=== PATIENT | male | born 1990 ===

== ENCOUNTER 2016-09-21 15:25 | Emergency (ER) | payer OTHER ==
[2016-09-21 16:03] VITALS: BMI 29.9
[2016-09-21] MEDS ORDERED: TDAP Vaccine 0.5 mL Syr IM ONE (16:12)
--- NOTE | 2016-09-21 17:30 | CT ---
PROCEDURE: CT HEAD WITHOUT CONTRAST. HISTORY: headache COMPARISON: Noncontrast head CT performed 02/08/15 TECHNIQUE: Axial computed tomography images were obtained through the head/brain without intravenous contrast. Radiation dose: Total exam DLP = 725.84 mGy-cm. This CT exam was performed using one or more of the following dose reduction techniques: Automated exposure control, adjustment of the mA and/or kV according to patient size, and/or use of iterative reconstruction technique. FINDINGS: HEMORRHAGE: No intracranial hemorrhage. BRAIN: No mass effect or edema. No atrophy or chronic microvascular ischemic changes. VENTRICLES: No hydrocephalus. CALVARIUM: Unremarkable. PARANASAL SINUSES: Unremarkable as visualized. No significant inflammatory changes. MASTOID AIR CELLS: Unremarkable as visualized. No inflammatory changes. OTHER FINDINGS: None. IMPRESSION: No acute intracranial pathology identified.
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
[2016-09-21 18:15] VITALS: BP 112/70; PULSE 70; RESP 18; TEMP 98; O2SAT 98
== END 2016-09-21 18:15 | disposition home or self-care (01) ==
LOC: ED 15:25
DX: S00.83XA Contusion of other part of head, initial encounter (principal); S00.81XA Abrasion of other part of head, initial encounter; S09.90XA Unspecified injury of head, initial encounter; Y04.0XXA Assault by unarmed brawl or fight, initial encounter; Y92.522 Railway station as the place of occurrence of the external cause; Z23 Encounter for immunization; F17.210 Nicotine dependence, cigarettes, uncomplicated

== ENCOUNTER 2016-12-15 14:13 | Emergency (ER) | payer OTHER ==
[2016-12-15] MEDS ORDERED: Naproxen 550 mg Tab PO STA (15:06)
[2016-12-15 15:08] VITALS: TEMP 98.8; BMI 30.7
--- NOTE | 2016-12-15 15:14 | ED PDOC ---
Arrival/HPI - General Chief Complaint: Lower Extremity Problem/Injury Time Seen by Provider: 12/15/16 14:57 Historian: Patient - History of Present Illness Narrative History of Present Illness (Text): 12/15/16 15:17 Patient reports injuring his left knee when he tried to lift a heavy cabinet at work today prior to arrival. Patient states that he has had prior injuries to the same knee in the past, and has not had any recent follow-up with an orthopedist. Patient states that his L knee normally "locks up" on him intermittently. Otherwise: (-) "pop", (-) instability, (-) other injury. Has history of prior knee injury. Past Medical History - Provider Review Nursing Documentation Reviewed: Yes - Infectious Disease Hx of Infectious Diseases: None - Tetanus Immunization Tetanus Immunization: Unknown - Cardiac Hx Cardiac Disorders: No - Pulmonary Hx Asthma: Yes - Neurological Hx Neurological Disorder: No - HEENT Hx HEENT Disorder: No - Renal Hx Renal Disorder: No - Endocrine/Metabolic Hx Endocrine Disorders: No - Hematological/Oncological Hx Blood Disorders: No - Integumentary Hx Dermatological Disorder: No - Musculoskeletal/Rheumatological Hx Musculoskeletal Disorders: No - Gastrointestinal Hx Gastrointestinal Disorders: No - Genitourinary/Gynecological Hx Genitourinary Disorders: No - Psychiatric Hx Bipolar Disorder: Yes Hx Depression: No Hx Substance Use: Yes (quit 3yrs ago) - Surgical History Hx Tonsillectomy: Yes - Anesthesia Hx Anesthesia: Yes Hx Anesthesia Reactions: No Hx Malignant Hyperthermia: No - Suicidal Assessment Feels Threatened In Home Enviroment: No Family/Social History - Physician Review Nursing Documentation Reviewed: Yes Family/Social History: No Known Family HX Smoking Status: Former Smoker Hx Alcohol Use: Yes Hx Substance Use: Yes (quit 3yrs ago) Substance used: marijuana Allergies/Home Meds Allergies/Adverse Reactions: Allergies No Known Allergies Allergy (Verified 12/15/16 14:51) Home Medications: Home Meds Medication Instructions Recorded Confirmed Albuterol HFA [Ventolin HFA 90 2 puff IH [id number] PRN 04/13/16 12/15/16 mcg/actuation (8 g)] Azithromycin [Zithromax Tri-Miller] 500 mg PO DAILY 04/13/16 12/15/16 Review of Systems - Review of Systems Constitutional: Normal. absent: Fatigue, Weight Change, Fevers Musculoskeletal: Normal, Arthralgias (chronic L knee pain with prior injury). absent: Back Pain, Neck Pain Skin: Normal. absent: Rash, Pruritis, Skin Lesions Physical Exam Vital Signs Reviewed: Yes Vital Signs Temp Pulse Resp BP Pulse Ox 12/15/16 16:19 68 18 133/65 99 12/15/16 15:10 71 18 135/62 98 12/15/16 14:49 98.8 F 75 16 137/66 98 Temperature: Afebrile Blood Pressure: Normal Pulse: Regular Respiratory Rate: Normal Appearance: Positive for: Well-Appearing, Non-Toxic, Comfortable Pain Distress: Mild Mental Status: Positive for: Alert and Oriented X 3 - Systems Exam Head: Present: Atraumatic, Normocephalic Neck: Present: Normal Range of Motion Back: Present: Normal Inspection. No: Midline Tenderness, Paraspinal Tenderness Upper Extremity: Present: Normal Inspection, Normal ROM, NORMAL PULSES, Neurovascularly Intact, Capillary Refill < 2s. No: Edema, Tenderness, Swelling Lower Extremity: Present: Normal Inspection, NORMAL PULSES, Normal ROM, Neurovascularly Intact, Capillary Refill < 2 s, Other (L knee: +tenderness to the medial aspect of the knee with +palpable nontender motley's cyst to the posterior aspect, negative ACL/PCL stress test, negative varus stress test, + valgus stress test, FROM.). No: Edema, CALF TENDERNESS, Tenderness, Swelling, Deformity Neurological: Present: GCS=15, CN II-XII Intact, Motor Func Grossly Intact, Normal Sensory Function Skin: Present: Warm, Dry. 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 Likely sprain, r/o fracture vs contusion. Plan: - XR L knee - Naprosyn po - Ice pack XR L knee: (-) acute fracture, (-) dislocation, as read by PETE and confirmed by Dr. Maldonado (radiologist) X-ray results discussed with the patient in great detail. Roldan wrap and knee immobilizer applied to the knee. Patient refused crutches. 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 Orthopedic referral provided by the patient as per his request. Patient states he fully agrees with and understands discharge instructions. States that he agrees with the plan and disposition. Verbalized and repeated discharge instructions and plan. I have given the patient opportunity to ask any additional questions. Follow up with workwilson's comp in 1-2 days without fail. Advised to take medication as prescribed. Return to the emergency room at any time for any new or worsening symptoms. - RAD Interpretation Radiology Orders: 12/15/16 15:06 KNEE LEFT 2 VIEWS (AP & LAT) [RAD] Stat - Medication Orders Current Medication Orders: Discontinued Medications Naproxen (Anaprox Ds) 550 mg PO ONCE STA Stop: 12/15/16 15:07 Last Admin: 12/15/16 15:16 Dose: 550 mg - PA / DYED [employer]EDER / Resident Statement MD/DO has reviewed & agrees with the documentation as recorded. Disposition/Present on Arrival - Present on Arrival Any Indicators Present on Arrival: No History of DVT/PE: No History of Uncontrolled Diabetes: No Urinary Catheter: No History of Decub. Ulcer: No History Surgical Site Infection Following: None - Disposition Have Diagnosis and Disposition been Completed?: Yes Diagnosis: Knee sprain, Motley's cyst of knee Disposition: HOME/ ROUTINE Disposition Time: 16:00 Patient Plan: Discharge Patient Problems: Current Active Problems Problem Status Onset Knee sprain Acute Motley's cyst of knee Acute Condition: STABLE Discharge Instructions (ExitCare): Knee Sprain (ED), Motley's Cyst (ED), Knee Immobilizer (ED) Print Language: SAMOAN Additional Instructions: Thank you for letting us take care of you today. You were treated for left knee sprain, Motley's cyst of the left knee. The emergency medical care you received today was directed at your acute symptoms. If you were prescribed any medication , please fill it and take as directed. It may take several days for your symptoms to resolve. Return to the Emergency Department if your symptoms worsen , do not improve, or if you have any other problems. Please contact workmen's comp in 2 days for re-evaluation and follow up. Bring any paperwork you were given at discharge with you along with any medications you are taking to your follow up visit. Our treatment cannot replace ongoing medical care by a primary care provider (PCP) outside of the emergency department. Thank you for allowing the [facility] team to be part of your care today. Prescriptions: Naproxen 500 mg PO BID #30 tab Referrals: [employer] [facility], [Primary Care Provider] - Follow up with primary Reyes Hodges III, MD [Medical Doctor] - Follow up with primary Forms: WORK NOTE
[2016-12-15 15:32] VITALS: RESP 18
--- NOTE | 2016-12-15 15:59 | RAD ---
PROCEDURE: Left Knee Radiographs. HISTORY: Pain. COMPARISON: None. FINDINGS: BONES: Normal. No fracture. JOINTS: Normal. No osteoarthritis. JOINT EFFUSION: None. OTHER FINDINGS: None. IMPRESSION: No significant or acute findings to account for/ related to the clinical presentation.
[2016-12-15 17:15] VITALS: BP 114/72; PULSE 59; O2SAT 100
== END 2016-12-15 16:51 | disposition home or self-care (01) ==
LOC: ED 14:13
DX: S83.92XA Sprain of unspecified site of left knee, initial encounter (principal); X50.0XXA Overexertion from strenuous movement or load, initial encounter; Y93.89 Activity, other specified; Y92.89 Other specified places as the place of occurrence of the external cause; Y99.8 Other external cause status; M71.22 Synovial cyst of popliteal space [Baker], left knee

== ENCOUNTER 2017-01-26 14:24 | Emergency (ER) | payer OTHER ==
[2017-01-26 14:24] VITALS: BMI 29.9
[2017-01-26 14:32] VITALS: BP 122/57; PULSE 61; RESP 16; TEMP 98.3; O2SAT 98
--- NOTE | 2017-01-26 15:00 | ED PDOC ---
Arrival/HPI - General Historian: Patient - History of Present Illness Time/Duration: < week Symptom Onset: Gradual Symptom Course: Worsening Activities at Onset: Rest - General Chief Complaint: Weakness/Neurological Deficit Time Seen by Provider: 01/26/17 14:35 - History of Present Illness Narrative History of Present Illness (Text): 01/26/17 14:48 26 year old male with no significant past medical history presents for left hand numbness. Numbness began a few days ago and was intermittent. Since yesterday though, numbness has been constant. Patient denies having any pain in hand, no injury to hand, arm or neck. Patient describes numbness starting off as pins and needles but now it feels numb. Patient denies having any DOMINGUEZ, vision changes, hearing changes, decrease motor strength. (La Nena Pate) Past Medical History - Provider Review Nursing Documentation Reviewed: Yes - Travel History Have you recently traveled outside [place] w/in the past 3 mons?: No - Infectious Disease Hx of Infectious Diseases: None - Tetanus Immunization Tetanus Immunization: Unknown - Cardiac Hx Cardiac Disorders: No - Pulmonary Hx Respiratory Disorders: Yes Hx Asthma: Yes - Neurological Hx Neurological Disorder: No - HEENT Hx HEENT Disorder: No - Renal Hx Renal Disorder: No - Endocrine/Metabolic Hx Endocrine Disorders: No - Hematological/Oncological Hx Blood Disorders: No - Integumentary Hx Dermatological Disorder: No - Musculoskeletal/Rheumatological Hx Musculoskeletal Disorders: No - Gastrointestinal Hx Gastrointestinal Disorders: No - Genitourinary/Gynecological Hx Genitourinary Disorders: No - Psychiatric Hx Bipolar Disorder: Yes Hx Depression: No Hx Substance Use: Yes (quit 3yrs ago) - Surgical History Hx Tonsillectomy: Yes - Anesthesia Hx Anesthesia: Yes Hx Anesthesia Reactions: No Hx Malignant Hyperthermia: No - Suicidal Assessment Feels Threatened In Home Enviroment: No Family/Social History - Physician Review Nursing Documentation Reviewed: Yes Family/Social History: Other (MS) Smoking Status: Former Smoker Hx Alcohol Use: No Hx Substance Use: Yes (quit 3yrs ago) Substance used: marijuana Allergies/Home Meds Allergies/Adverse Reactions: Allergies No Known Allergies Allergy (Verified 12/15/16 14:51) Home Medications: Home Meds Medication Instructions Recorded Confirmed Albuterol HFA [Ventolin HFA 90 2 puff IH PRN PRN 04/13/16 01/26/17 mcg/actuation (8 g)] Review of Systems - Review of Systems Constitutional: Normal. absent: Fatigue, Fevers Eyes: Normal. absent: Vision Changes, Photophobia, Eye Pain ENT: Normal. absent: Hearing Changes, Rhinorrhea Respiratory: Normal. absent: SOB, Cough, Sputum, Wheezing Cardiovascular: Normal. absent: Chest Pain, Palpitations, Edema, Calf Pain Gastrointestinal: Normal. absent: Abdominal Pain, Constipation, Diarrhea, Nausea, Vomiting Genitourinary Male: Normal. absent: Dysuria, Frequency Musculoskeletal: Normal. absent: Arthralgias, Back Pain, Neck Pain Skin: Normal. absent: Rash, Pruritis, Skin Lesions, Laceration Neurological: Other (left hand numbness ). absent: Headache, Dizziness Endocrine: Normal. absent: Diaphoresis, Polyuria Hemo/Lymphatic: Normal. absent: Adenopathy, Easy Bleeding Physical Exam Vital Signs Reviewed: Yes Temperature: Afebrile Blood Pressure: Normal Pulse: Regular Respiratory Rate: Normal Appearance: Positive for: Well-Appearing, Non-Toxic, Comfortable Pain Distress: None Mental Status: Positive for: Alert and Oriented X 3 - Systems Exam Head: Present: Atraumatic, Normocephalic Pupils: Present: PERRL Extroacular Muscles: Present: EOMI Conjunctiva: Present: Normal Neck: Present: Normal Range of Motion. No: MIDLINE TENDERNESS, Paraspinal Tenderness Respiratory/Chest: Present: Clear to Auscultation, Good Air Exchange. No: Respiratory Distress, Accessory Muscle Use, Wheezes, Rales, Rhonchi Cardiovascular: Present: Regular Rate and Rhythm, Normal S1, S2. No: Murmurs, Rub, Gallop, Muffled Abdomen: Present: Normal Bowel Sounds. No: Tenderness, Distention, Peritoneal Signs, Rebound, Guarding Upper Extremity: Present: Normal ROM, NORMAL PULSES, Tenderness (left lateral elbow tenderness and ryder hand pain with stretching ). No: Edema Lower Extremity: Present: Normal Inspection, NORMAL PULSES. No: Edema, CALF TENDERNESS Neurological: Present: GCS=15, Speech Normal, Motor Func Grossly Intact, Normal Sensory Function, Normal Cerebellar Funct Skin: Present: Warm, Dry, Normal Color. No: Rashes Psychiatric: Present: Alert, Oriented x 3, Normal Insight, Normal Concentration. No: Normal Affect, Normal Mood Medical Decision Making ED Course and Treatment: 01/26/17 15:13 26 y/o male presents with left hand numbness. Patient had left elbow tenderness and hand pain with stretching. Most likely the numbness is 2/2 radiculopathy. Patient does have family history of MS (mother). Patient is told to follow up with neurologist, Dr. Meza upon discharge. (La Nena Pate) 01/26/17 15:13 26 yo male with left hand numbness/tingling and pain as describes in resident note. Agree with note. I discussed with patient the importance of follow up with his PMD. He says he already has a referral to see Dr. Meza Neurology to be evaluated for MS. IT was stressed to him to make sure to follow up as scheduled. (Olegario Brink) - Medication Orders Current Medication Orders: Discontinued Medications Ketorolac Tromethamine (Toradol) 30 mg IM STAT STA Stop: 01/26/17 15:05 Last Admin: 01/26/17 15:20 Dose: 30 mg Disposition/Present on Arrival - Present on Arrival Any Indicators Present on Arrival: No History of DVT/PE: No History of Uncontrolled Diabetes: No Urinary Catheter: No History of Decub. Ulcer: No History Surgical Site Infection Following: None - Disposition Have Diagnosis and Disposition been Completed?: Yes Disposition Time: 15:16 Patient Plan: Discharge - Disposition Diagnosis: Hand numbness Disposition: HOME/ ROUTINE Condition: GOOD Additional Instructions: Daquan Hampton, thank you for letting us take care of you today. Your provider was Dr. La Nena Pate. You were treated for hand numbness. The emergency medical care you received today was directed at your acute symptoms. If you were prescribed any medication, please fill it and take as directed. It may take several days for your symptoms to resolve. Return to the Emergency Department if your symptoms worsen, do not improve, or if you have any other problems. Please contact your doctor or call one of the physicians/clinics you have been referred to that are listed on the Patient Visit Information form that is included in your discharge packet. Bring any paperwork you were given at discharge with you along with any medications you are taking to your follow up visit. Our treatment cannot replace ongoing medical care by a primary care provider (PCP) outside of the emergency department. Thank you for allowing the [facility] team to be part of your care today. If you had an X-Ray or CT scan: A Radiologist will review the ED reading if any change in treatment is needed we will contact you. If you had a blood, urine, or wound culture: It will take several days for the results, if any change in treatment is needed we will contact you. If you had an STI test: It will take 48 hours for the results. Please call after 1 week if you have not heard back. Prescriptions: Naproxen Sodium [Aleve] 220 mg PO DAILY #30 tablet Referrals: PCP,NO [Primary Care Provider] - Follow up with primary Sundeep Meza MD [Staff Provider] - Follow up with primary Forms: [facility] (Tristanian), WORK NOTE
== END 2017-01-26 15:45 | disposition home or self-care (01) ==
LOC: ED 14:24
DX: R20.0 Anesthesia of skin (principal); Z87.891 Personal history of nicotine dependence
CPT/HCPCS: 96372; 99284; J1885

== ENCOUNTER 2017-03-24 07:29 | Emergency (ER) | payer OTHER ==
[2017-03-24 07:29] VITALS: BMI 29.9
[2017-03-24 07:45] VITALS: BP 124/56; PULSE 80; RESP 18; TEMP 98.6; O2SAT 98
--- NOTE | 2017-03-24 08:22 | CT ---
PROCEDURE: CT HEAD WITHOUT CONTRAST. HISTORY: numbness COMPARISON: 09/21/2016 TECHNIQUE: Axial computed tomography images were obtained through the head/brain without intravenous contrast. Radiation dose: Total exam DLP = 781.19 mGy-cm. This CT exam was performed using one or more of the following dose reduction techniques: Automated exposure control, adjustment of the mA and/or kV according to patient size, and/or use of iterative reconstruction technique. FINDINGS: HEMORRHAGE: No intracranial hemorrhage. BRAIN: No mass effect or edema. No atrophy or chronic microvascular ischemic changes. VENTRICLES: Unremarkable. No hydrocephalus. CALVARIUM: Unremarkable. PARANASAL SINUSES: Mild chronic pansinusitis. MASTOID AIR CELLS: Unremarkable as visualized. No inflammatory changes. OTHER FINDINGS: None. IMPRESSION: No intracranial mass, hemorrhage or evidence of acute infarct. Mild chronic pansinusitis. Otherwise unremarkable examination.
--- NOTE | 2017-03-24 08:56 | ED PDOC ---
Arrival/HPI - General Chief Complaint: Weakness/Neurological Deficit Time Seen by Provider: 03/24/17 08:00 - History of Present Illness Narrative History of Present Illness (Text): 03/24/17 08:54 27-year-old male, presents emergency Department with right hand pins and needle sensation since he woke up this morning. Patient states that he has no weakness. Denies any other neurological complaints. No relieving or exacerbating factors. Denies pain. Past Medical History - Provider Review Nursing Documentation Reviewed: Yes - Infectious Disease Hx of Infectious Diseases: None - Tetanus Immunization Tetanus Immunization: Unknown - Cardiac Hx Cardiac Disorders: No - Pulmonary Hx Respiratory Disorders: Yes Hx Asthma: Yes - Neurological Hx Neurological Disorder: No - HEENT Hx HEENT Disorder: No - Renal Hx Renal Disorder: No - Endocrine/Metabolic Hx Endocrine Disorders: No - Hematological/Oncological Hx Blood Disorders: No - Integumentary Hx Dermatological Disorder: No - Musculoskeletal/Rheumatological Hx Musculoskeletal Disorders: No - Gastrointestinal Hx Gastrointestinal Disorders: No - Genitourinary/Gynecological Hx Genitourinary Disorders: No - Psychiatric Hx Bipolar Disorder: Yes Hx Depression: No Hx Substance Use: Yes (quit 3yrs ago) - Surgical History Hx Tonsillectomy: Yes - Anesthesia Hx Anesthesia: Yes Hx Anesthesia Reactions: No Hx Malignant Hyperthermia: No - Suicidal Assessment Feels Threatened In Home Enviroment: No Family/Social History Family/Social History: Unknown Family HX Smoking Status: Former Smoker Hx Alcohol Use: No Hx Substance Use: Yes (quit 3yrs ago) Substance used: marijuana Allergies/Home Meds Allergies/Adverse Reactions: Allergies No Known Allergies Allergy (Verified 12/15/16 14:51) Home Medications: Home Meds Medication Instructions Recorded Confirmed Albuterol HFA [Ventolin HFA 90 2 puff IH PRN PRN 04/13/16 01/26/17 mcg/actuation (8 g)] Physical Exam - Physical Exam Narrative Physical Exam (Text): 03/24/17 08:56 - Review of Systems Constitutional: Normal. absent: Fatigue, Weight Change, Fevers Eyes: Normal ENT: denies sore throat, denies tristhmus Respiratory: Normal. absent: SOB, Cough, Sputum Cardiovascular: absent: Chest Pain, Palpitations, Syncope Gastrointestinal: Normal. absent: Abdominal Pain, Diarrhea, Nausea, Vomiting Genitourinary: Normal. absent: Dysuria, Frequency, Hematuria Musculoskeletal: Normal. absent: Arthralgias, Back Pain, Neck Pain Skin: no rashes, no erythema Neurological: absent: Focal Weakness Endocrine: Normal Hemo/Lymphatic: Normal Psychiatric: No suicidal or homicidal ideations Physical exam Patient appears age appropriate in no distress, speaking full sentences without difficulty - Systems Exam Head: Present: Atraumatic, Normocephalic Pupils: Present: PERRL Extroacular Muscles: Present: EOMI Conjunctiva: Present: Normal Mouth: Present: Moist Mucous Membranes Neck: Present: Normal Range of Motion. No: MIDLINE TENDERNESS, Paraspinal Tenderness Respiratory/Chest: Present: Clear to Auscultation, Good Air Exchange. No: Respiratory Distress, Accessory Muscle Use, Tachypneic Cardiovascular: Present: Regular Rate and Rhythm, Normal S1, S2, Peripheal Pulses Present. No: Murmurs Abdomen: Present: Normal Bowel Sounds. No: Tenderness, Distention, Peritoneal Signs, Rebound, Guarding Back: Present: Normal Inspection. No: Midline Tenderness, Paraspinal Tenderness Upper Extremity: Present: Normal Inspection. No: Cyanosis, Edema Lower Extremity: Present: Normal Inspection. No: Edema Neurological: Present: GCS=15, Speech Normal, cranial nerves II through XII fully intact with no cerebellar abnormality, neurosensory fully intact. No focal neurological deficits. Skin: Present: Warm, Dry, Normal Color. No: Rashes Lymphatic: Present: OX3, NI, NC Psychiatric: Present: Alert, Oriented x 3, Normal Insight, Normal Concentration Vital Signs Reviewed: Yes Vital Signs Temp Pulse Resp BP Pulse Ox 03/24/17 07:29 98.6 F 80 18 124/56 L 98 Temperature: Afebrile Blood Pressure: Normal Pulse: Regular Respiratory Rate: Normal Appearance: Positive for: Well-Appearing Pain Distress: None Mental Status: Positive for: Alert and Oriented X 3 Medical Decision Making ED Course and Treatment: 03/24/17 09:01 27-year-old male presents with paresthesias/pins and needle sensations in his right hand, along the fifth and fourth digits. On examination, patient has good strength, good capillary refill, normal color, and no focal neurological deficits. Based on history and physical examination, unlikely due to strokelike symptoms Case discussed with patient's neurologist Dr. Cole Meza in detail, recommends discharge home and outpatient follow-up. CAT scan and cervical spine imaging has no acute findings. Asked to provide patient with a prescription for gabapentin 100 mg to take in the evening. Patient in no distress. No acute findings on CAT scans Pt states he understands to return to the ER right away for new or worsening symptoms or for inability to f/u with PMD or specialist as instructed. Patient states that he fully agrees with and understands discharge instructions. States that he agrees with the plan and disposition. Verbalized and repeated discharge instructions and plan. I have given the patient opportunity to ask any additional questions. PROCEDURE: CT HEAD WITHOUT CONTRAST. Report Date : 03/24/2017 08:20:42 Dictator : Brannon Elmore MD IMPRESSION: No intracranial mass, hemorrhage or evidence of acute infarct. Mild chronic pansinusitis. Otherwise unremarkable examination. PROCEDURE: CT Cervical Spine without contrast Report Date : 03/24/2017 08:59:45 Dictator : Brannon Elmore MD IMPRESSION: No fracture/ dislocation. Nodule in lower pole left lobe of thyroid. Please correlate with thyroid ultrasound on a nonemergent basis. - RAD Interpretation Radiology Orders: 03/24/17 08:00 HEAD W/O CONTRAST [CT] Stat 03/24/17 08:01 CERVICAL SPINE W/O CONTRAST [CT] Stat Disposition/Present on Arrival - Present on Arrival Any Indicators Present on Arrival: No History of DVT/PE: No History of Uncontrolled Diabetes: No Urinary Catheter: No History of Decub. Ulcer: No History Surgical Site Infection Following: None - Disposition Have Diagnosis and Disposition been Completed?: Yes Diagnosis: Paresthesia Disposition: HOME/ ROUTINE Disposition Time: 08:53 Patient Plan: Discharge Patient Problems: Current Active Problems Problem Status Onset Paresthesia Acute Condition: GOOD Discharge Instructions (ExitCare): Paresthesia (ED) Additional Instructions: PLEASE RETURN TO THE EMERGENCY DEPARTMENT FOR NEW OR WORSENING SYMPTOMS. RETURN RIGHT AWAY IF YOU CANNOT FOLLOW UP WITH YOUR PRIMARY CARE DOCTOR, CLINIC, OR SPECIALIST IN 1-2 DAYS. Prescriptions: Gabapentin [Neurontin] 100 mg PO DAILY #7 capsule Referrals: Ariel Liu MD [Primary Care Provider] - Follow up with primary Sundeep Meza MD [Staff Provider] - Follow up with primary Forms: [employer] (German), WORK NOTE
--- NOTE | 2017-03-24 09:01 | CT ---
PROCEDURE: CT Cervical Spine without contrast HISTORY: <numbness> COMPARISON: None available. TECHNIQUE: Axial computed tomography images were obtained of the cervical spine without the use of intravenous contrast. Coronal and sagittal reformatted images were created and reviewed. Radiation dose: Total exam DLP = 593.72 mGy-cm. This CT exam was performed using one or more of the following dose reduction techniques: Automated exposure control, adjustment of the mA and/or kV according to patient size, and/or use of iterative reconstruction technique. FINDINGS: VERTEBRAE: No fracture. Normal alignment. No destructive bony lesion. DISCS/SPINAL CANAL/NEURAL FORAMINA: No significant central canal or neural foraminal stenosis. Discs heights are grossly preserved. PARASPINAL SOFT TISSUES: 1.3 cm nodule lower pole left thyroid lobe. Correlate with thyroid ultrasound. OTHER FINDINGS: None. IMPRESSION: No fracture/ dislocation. Nodule in lower pole left lobe of thyroid. Please correlate with thyroid ultrasound on a nonemergent basis.
== END 2017-03-24 09:10 | disposition home or self-care (01) ==
LOC: ED 07:29
DX: R20.2 Paresthesia of skin (principal)

== ENCOUNTER 2017-05-15 18:08 | Emergency (ER) | payer OTHER ==
[2017-05-15 18:09] VITALS: BMI 29.9
[2017-05-15 18:23] VITALS: RESP 18; TEMP 99
--- NOTE | 2017-05-15 19:18 | ED PDOC ---
Arrival/HPI - General Chief Complaint: Chest Pain Time Seen by Provider: 05/15/17 18:37 Historian: Patient - History of Present Illness Narrative History of Present Illness (Text): 05/15/17 18:40 A 27 year old male, whose past medical history includes , presents to the emergency department complaining of left-side back pain since yesterday. Patient reports he woke up in bed with pain and states bed was uncomfortable. Describes pain as sore, worsens with movement, radiating across left chest and lower back. Patient denies any numbness, weakness, palpitations, shortness of breath, or any other complaints. PMD: Dr. Liu Time/Duration: 24 hours Symptom Onset: Sudden Symptom Course: Unchanged Past Medical History - Provider Review Nursing Documentation Reviewed: Yes - Infectious Disease Hx of Infectious Diseases: None - Tetanus Immunization Tetanus Immunization: Unknown - Cardiac Hx Cardiac Disorders: No - Pulmonary Hx Respiratory Disorders: Yes Hx Asthma: Yes - Neurological Hx Neurological Disorder: No - HEENT Hx HEENT Disorder: No - Renal Hx Renal Disorder: No - Endocrine/Metabolic Hx Endocrine Disorders: No - Hematological/Oncological Hx Blood Disorders: No - Integumentary Hx Dermatological Disorder: No - Musculoskeletal/Rheumatological Hx Musculoskeletal Disorders: No - Gastrointestinal Hx Gastrointestinal Disorders: No - Genitourinary/Gynecological Hx Genitourinary Disorders: No - Psychiatric Hx Bipolar Disorder: Yes Hx Depression: No Hx Substance Use: Yes (quit 3yrs ago) - Surgical History Hx Tonsillectomy: Yes - Anesthesia Hx Anesthesia: Yes Hx Anesthesia Reactions: No Hx Malignant Hyperthermia: No - Suicidal Assessment Feels Threatened In Home Enviroment: No Family/Social History - Physician Review Nursing Documentation Reviewed: Yes Family/Social History: No Known Family HX Smoking Status: Current Some Days Smoker Hx Alcohol Use: No Hx Substance Use: Yes (quit 3yrs ago) Substance used: marijuana Allergies/Home Meds Allergies/Adverse Reactions: Allergies No Known Allergies Allergy (Verified 05/15/17 18:23) Review of Systems - Physician Review All systems were reviewed & negative as marked: Yes - Review of Systems Respiratory: absent: SOB Cardiovascular: absent: Palpitations Musculoskeletal: Back Pain (left-side, radiating to left chest region) Neurological: Other (no numbness). absent: Focal Weakness Physical Exam Vital Signs Reviewed: Yes Vital Signs Temp Pulse Resp BP Pulse Ox 05/15/17 20:09 74 18 125/65 98 05/15/17 18:19 99 F 73 18 127/62 97 Temperature: Afebrile Blood Pressure: Normal Pulse: Regular Respiratory Rate: Normal Appearance: Positive for: Well-Appearing Pain Distress: None Mental Status: Positive for: Alert and Oriented X 3 - Systems Exam Head: Present: Atraumatic, Normocephalic Pupils: Present: PERRL Extroacular Muscles: Present: EOMI Conjunctiva: Present: Normal Mouth: Present: Moist Mucous Membranes Neck: Present: Normal Range of Motion Respiratory/Chest: Present: Clear to Auscultation, Good Air Exchange. No: Respiratory Distress, Accessory Muscle Use Cardiovascular: Present: Regular Rate and Rhythm, Normal S1, S2. No: Murmurs Abdomen: Present: Normal Bowel Sounds. No: Tenderness, Distention, Peritoneal Signs Back: Present: Paraspinal Tenderness (left upper back paraspinal tenderness radiating to left chest wall) Upper Extremity: Present: Normal Inspection. No: Cyanosis, Edema Lower Extremity: Present: Normal Inspection. No: Edema Neurological: Present: GCS=15, CN II-XII Intact, Speech Normal Skin: Present: Warm, Dry, Normal Color. No: Rashes Psychiatric: Present: Alert, Oriented x 3, Normal Insight, Normal Concentration Medical Decision Making ED Course and Treatment: 05/15/17 18:45 Impression: 27 year old male with left-sided back pain. Physical exam shows left upper back paraspinal tenderness, radiating to left chest wall. Differential Diagnosis included but are not limited to: Musculoskeletal Plan: -- EKG -- Chest X-ray -- Flexiril -- Motrin -- Reassess and disposition Prior Visits: Notes and results from previous visits were reviewed. Patient was last seen in the emergency department on 03/24/2017 for right hands pins and needles sensation. Patient was discharged home. Progress Notes: On reevaluation, patient felt much better. Rx Flexeril and Motrin. Work note given. Advised to follow up with primary care doctor in 1-2days. - RAD Interpretation Radiology Orders: 05/15/17 18:45 CHEST TWO VIEWS (PA/LAT) [RAD] Stat - Medication Orders Current Medication Orders: Discontinued Medications Cyclobenzaprine HCl (Flexeril) 5 mg PO STAT STA Stop: 05/15/17 18:46 Last Admin: 05/15/17 19:16 Dose: 5 mg Ibuprofen (Motrin Tab) 600 mg PO STAT STA Stop: 05/15/17 18:46 Last Admin: 05/15/17 19:16 Dose: 600 mg MAR Pain/Vitals Document 05/15/17 19:16 RG (Rec: 05/15/17 19:16 RG [id number]) Pain Reassessment Is This A Pain ReAssessment? Yes Presence of Pain Presence of Pain Yes Pain Scale Used Pain Scale Used Numeric Location Pain Location Body Site Chest Scale Used Numeric - Scribe Statement The provider has reviewed the documentation as recorded by the Jakob Correa Provider Scribe Attestation: All medical record entries made by the Scribe were at my direction and personally dictated by me. I have reviewed the chart and agree that the record accurately reflects my personal performance of the history, physical exam, medical decision making, and the department course for this patient. I have also personally directed, reviewed, and agree with the discharge instructions and disposition. Disposition/Present on Arrival - Present on Arrival Any Indicators Present on Arrival: No History of DVT/PE: No History of Uncontrolled Diabetes: No Urinary Catheter: No History of Decub. Ulcer: No History Surgical Site Infection Following: None - Disposition Have Diagnosis and Disposition been Completed?: Yes Diagnosis: Back pain Disposition: HOME/ ROUTINE Disposition Time: 21:10 Patient Plan: Discharge Condition: IMPROVED Discharge Instructions (ExitCare): Acute Low Back Pain (ED) Additional Instructions: Bonita, thank you for letting us take care of you today. Your provider was Dr. Brink. You were treated for Back Strain. The emergency medical care you received today was directed at your acute symptoms. If you were prescribed any medication, please fill it and take as directed. It may take several days for your symptoms to resolve. Return to the Emergency Department if your symptoms worsen, do not improve, or if you have any other problems. Please contact your doctor or call one of the physicians/clinics you have been referred to that are listed on the Patient Visit Information form that is included in your discharge packet. Bring any paperwork you were given at discharge with you along with any medications you are taking to your follow up visit. Our treatment cannot replace ongoing medical care by a primary care provider (PCP) outside of the emergency department. Thank you for allowing the [facility] team to be part of your care today. If you had an X-Ray or CT scan: A Radiologist will review the ED reading if any change in treatment is needed we will contact you. If you had a blood, urine, or wound culture: It will take several days for the results, if any change in treatment is needed we will contact you. If you had an STI test: It will take 48 hours for the results. Please call after 1 week if you have not heard back. Prescriptions: Cyclobenzaprine [Cyclobenzaprine HCl] 5 mg PO Q8 #20 tab Ibuprofen [Motrin] 600 mg PO Q6 PRN #30 tab PRN Reason: Pain, Moderate (4-7) Referrals: Ariel Liu MD [Primary Care Provider] - Follow up with primary Forms: [employer] (Slovak), WORK NOTE
[2017-05-15 22:08] VITALS: O2SAT 98
[2017-05-15 22:12] VITALS: BP 123/65; PULSE 72
--- NOTE | 2017-05-16 08:51 | RAD ---
HISTORY: chest pain COMPARISON: 04/13/2016 TECHNIQUE: Chest PA and lateral FINDINGS: LUNGS: No active pulmonary disease. PLEURA: No significant pleural effusion identified. No pneumothorax apparent. CARDIOVASCULAR: Normal. OSSEOUS STRUCTURES: No significant abnormalities. VISUALIZED UPPER ABDOMEN: Normal. OTHER FINDINGS: None. IMPRESSION: No active disease.
--- NOTE | 2017-05-16 20:05 | CARD ---
APPROVED REPORT EKG Measurement Heart [id number] <Conclusion> Normal sinus rhythm with sinus arrhythmia Normal ECG
== END 2017-05-15 21:10 | disposition home or self-care (01) ==
LOC: ED 18:08
DX: M54.9 Dorsalgia, unspecified (principal)

== ENCOUNTER 2017-07-03 15:52 | Emergency (ER) | payer SELFPAY ==
[2017-07-03 16:08] VITALS: BMI 29.8
[2017-07-03 16:21] VITALS: BP 127/76; PULSE 86; RESP 18; TEMP 99.2; O2SAT 97
== END 2017-07-03 16:29 | disposition left against medical advice (07) ==
LOC: ED 15:52
DX: Z02.89 Encounter for other administrative examinations (principal); F19.10 Other psychoactive substance abuse, uncomplicated

== ENCOUNTER 2017-07-04 05:35 | Emergency (ER) | payer MEDICAID, OTHER ==
[2017-07-04 05:35] VITALS: BMI 29.8
[2017-07-04 05:49] VITALS: O2SAT 96
[2017-07-04] MEDS ORDERED: Albuterol-Ipratrop 3 mg / 0.5 (3 ml) UD ONE (05:51)
[2017-07-04] MEDS: Albuterol-Ipratrop 3 mg / 0.5 (3 ml) UD IH SCH ×3 (05:55→06:30)
--- NOTE | 2017-07-04 06:41 | ED PDOC ---
Arrival/HPI - General Chief Complaint: Shortness Of Breath Time Seen by Provider: 07/04/17 05:37 Historian: Patient - History of Present Illness Narrative History of Present Illness (Text): 07/04/17 06:38 27 year old male with a history of asthma presents to the emergency room complaining of typical asthma symptoms. patient states that symptoms started approximately 4 hours ago. Did not take any medication. Patient denies cp, abd pain, n/v/d/c, fever. + dry cough. Patient denies sick contacts, recent travel, or flu vaccine this year. Past Medical History - Travel History Have you recently traveled outside [place] w/in the past 3 mons?: No - Infectious Disease Hx of Infectious Diseases: None - Tetanus Immunization Tetanus Immunization: Unknown - Cardiac Hx Cardiac Disorders: No - Pulmonary Hx Respiratory Disorders: Yes Hx Asthma: Yes - Neurological Hx Neurological Disorder: No - HEENT Hx HEENT Disorder: No - Renal Hx Renal Disorder: No - Endocrine/Metabolic Hx Endocrine Disorders: No - Hematological/Oncological Hx Blood Disorders: No - Integumentary Hx Dermatological Disorder: No - Musculoskeletal/Rheumatological Hx Musculoskeletal Disorders: No - Gastrointestinal Hx Gastrointestinal Disorders: No - Genitourinary/Gynecological Hx Genitourinary Disorders: No - Psychiatric Hx Bipolar Disorder: Yes Hx Depression: No Hx Substance Use: Yes - Surgical History Hx Tonsillectomy: Yes - Anesthesia Hx Anesthesia: Yes Hx Anesthesia Reactions: No Hx Malignant Hyperthermia: No - Suicidal Assessment Feels Threatened In Home Enviroment: No Family/Social History Family/Social History: No Known Family HX Smoking Status: Light Smoker < 10 Cigarettes Daily Hx Alcohol Use: No Hx Substance Use: Yes Substance used: marijuana/pcp Allergies/Home Meds Allergies/Adverse Reactions: Allergies No Known Allergies Allergy (Verified 05/15/17 18:23) Home Medications: Home Meds Medication Instructions Recorded Confirmed Albuterol HFA [Ventolin HFA 90 1 puff IH PRN PRN 07/03/17 07/03/17 mcg/actuation (8 g)] Review of Systems - Physician Review All systems were reviewed & negative as marked: Yes - Review of Systems Respiratory: Cough, Wheezing Physical Exam Vital Signs Reviewed: Yes Vital Signs Temp Pulse Resp BP Pulse Ox 07/04/17 05:52 22 96 07/04/17 05:46 98.4 F 71 22 138/78 96 Temperature: Afebrile Blood Pressure: Normal Pulse: Regular Respiratory Rate: Normal Appearance: Positive for: Well-Appearing, Comfortable Pain Distress: None Mental Status: Positive for: Alert and Oriented X 3 - Systems Exam Head: Present: Atraumatic, Normocephalic Pupils: Present: PERRL Extroacular Muscles: Present: EOMI Conjunctiva: Present: Normal Mouth: Present: Moist Mucous Membranes Respiratory/Chest: Present: Wheezes. No: Accessory Muscle Use Cardiovascular: Present: Regular Rate and Rhythm, Normal S1, S2. No: Murmurs Abdomen: Present: Normal Bowel Sounds. No: Tenderness, Distention, Peritoneal Signs Medical Decision Making ED Course and Treatment: 07/04/17 06:41 Plan: nebs, steroids, influenza swab, monitor and re-eval - Medication Orders Current Medication Orders: Discontinued Medications Albuterol/Ipratropium (Duoneb 3 Mg/0.5 Mg (3 Ml) Ud) 3 ml IH Q15M DAVY Stop: 07/04/17 06:31 Last Admin: 07/04/17 06:15 Dose: 3 ml Prednisone (Prednisone Tab) 60 mg PO STAT ONE Stop: 07/04/17 06:12 Last Admin: 07/04/17 06:27 Dose: 60 mg - Transfer of Care Patient signed out to Dr:: Sascha Disposition/Present on Arrival - Present on Arrival Any Indicators Present on Arrival: No History of DVT/PE: No History of Uncontrolled Diabetes: No Urinary Catheter: No History of Decub. Ulcer: No History Surgical Site Infection Following: None - Disposition Have Diagnosis and Disposition been Completed?: Yes Diagnosis: Asthma exacerbation Disposition Time: 07:00 Condition: UNKNOWN
--- NOTE | 2017-07-04 07:26 | ED PDOC ---
Physical Exam Vital Signs Reviewed: Yes Vital Signs Temp Pulse Resp BP Pulse Ox 07/04/17 05:52 22 96 07/04/17 05:46 98.4 F 71 22 138/78 96 Temperature: Afebrile Blood Pressure: Normal Pulse: Regular Respiratory Rate: Normal Appearance: Positive for: Well-Appearing, Non-Toxic, Comfortable Pain Distress: None Mental Status: Positive for: Alert and Oriented X 3 Medical Decision Making ED Course and Treatment: 07/04/17 07:25: Patient endorsed to me by Dr. Childs. Will re-evaluate patient status and disposition. - Lab Interpretations Lab Results: Lab Results 07/04/17 06:14: Influenza Typ A,B (EIA) Negative for flu a/b - Medication Orders Current Medication Orders: Discontinued Medications Albuterol/Ipratropium (Duoneb 3 Mg/0.5 Mg (3 Ml) Ud) 3 ml IH Q15M DAVY Stop: 07/04/17 06:31 Last Admin: 07/04/17 06:30 Dose: 3 ml Prednisone (Prednisone Tab) 60 mg PO STAT ONE Stop: 07/04/17 06:12 Last Admin: 07/04/17 06:27 Dose: 60 mg - Scribe Statement The provider has reviewed the documentation as recorded by the Jakob Lugo Provider Scribe Attestation: All medical record entries made by the Scribe were at my direction and personally dictated by me. I have reviewed the chart and agree that the record accurately reflects my personal performance of the history, physical exam, medical decision making, and the department course for this patient. I have also personally directed, reviewed, and agree with the discharge instructions and disposition. Disposition/Present on Arrival - Present on Arrival Any Indicators Present on Arrival: No History of DVT/PE: No History of Uncontrolled Diabetes: No Urinary Catheter: No History of Decub. Ulcer: No History Surgical Site Infection Following: None - Disposition Have Diagnosis and Disposition been Completed?: Yes Diagnosis: Asthma exacerbation Disposition: HOME/ ROUTINE Disposition Time: 08:14 Patient Plan: Discharge Patient Problems: Current Active Problems Problem Status Onset Asthma exacerbation Acute Condition: UNKNOWN Discharge Instructions (ExitCare): Asthma (DC), Viral Syndrome (ED) Print Language: MONTSERRATIAN Additional Instructions: Drink alot of water. Avoid dairy products. Return for worsening symptoms. Prescriptions: Albuterol 0.083% [Albuterol Sulfate 3 Ml] 3 ml IH Q4 PRN 5 Days #1 packet PRN Reason: Shortness Of Breath Albuterol HFA [Ventolin HFA 90 mcg/actuation (8 g)] 0.09 mg IH Q4 PRN #1 bottle PRN Reason: Shortness Of Breath Prednisone [Deltasone] 20 mg PO DAILY #8 tablet Forms: [employer] (Mongolian), WORK NOTE
[2017-07-04 08:43] VITALS: BP 129/80; PULSE 80; RESP 18; TEMP 98
== END 2017-07-04 08:42 | disposition home or self-care (01) ==
LOC: ED 05:35
DX: J45.901 Unspecified asthma with (acute) exacerbation (principal); F17.210 Nicotine dependence, cigarettes, uncomplicated

== ENCOUNTER 2017-07-04 19:33 | Emergency (ER) | payer MEDICAID, OTHER ==
[2017-07-04 19:33] VITALS: BMI 29.8
[2017-07-04 20:44] VITALS: RESP 18; TEMP 97.8; O2SAT 99
--- NOTE | 2017-07-04 22:57 | ED PDOC ---
Arrival/HPI - General Chief Complaint: Substance Abuse Time Seen by Provider: 07/04/17 20:01 Historian: Patient - History of Present Illness Narrative History of Present Illness (Text): 07/04/17 20:10 27 year old male, with past medical history of asthma, presents to the Emergency Department accompanied by BPD complaining of hallucinations secondary to use of marijuana possibly spiked with PCP prior to arrival. Patient admits to small marijuana use today and is currently feeling anxious. Patients informs of past injury to head and requests medical evaluation. Patient denies any chest pain, shortness of breath, abdominal pain, fever, chills, nausea, vomiting , diarrhea, suicidal ideation, homicidal ideation or any other complaints. Time/Duration: Prior to Arrival Symptom Onset: Gradual Symptom Course: Unchanged Activities at Onset: Light Past Medical History - Provider Review Nursing Documentation Reviewed: Yes - Infectious Disease Hx of Infectious Diseases: None - Tetanus Immunization Tetanus Immunization: Unknown - Cardiac Hx Cardiac Disorders: No - Pulmonary Hx Respiratory Disorders: Yes Hx Asthma: Yes - Neurological Hx Neurological Disorder: No - HEENT Hx HEENT Disorder: No - Renal Hx Renal Disorder: No - Endocrine/Metabolic Hx Endocrine Disorders: No - Hematological/Oncological Hx Blood Disorders: No - Integumentary Hx Dermatological Disorder: No - Musculoskeletal/Rheumatological Hx Musculoskeletal Disorders: No - Gastrointestinal Hx Gastrointestinal Disorders: No - Genitourinary/Gynecological Hx Genitourinary Disorders: No - Psychiatric Hx Bipolar Disorder: Yes Hx Depression: No Hx Substance Use: Yes - Surgical History Hx Tonsillectomy: Yes - Anesthesia Hx Anesthesia: Yes Hx Anesthesia Reactions: No Hx Malignant Hyperthermia: No - Suicidal Assessment Feels Threatened In Home Enviroment: No Family/Social History - Physician Review Nursing Documentation Reviewed: Yes Family/Social History: No Known Family HX Smoking Status: Light Smoker < 10 Cigarettes Daily Hx Alcohol Use: No Hx Substance Use: Yes Substance used: marijuana/pcp Allergies/Home Meds Allergies/Adverse Reactions: Allergies No Known Allergies Allergy (Verified 05/15/17 18:23) Home Medications: Home Meds Medication Instructions Recorded Confirmed Albuterol HFA [Ventolin HFA 90 1 puff IH PRN PRN 07/03/17 07/04/17 mcg/actuation (8 g)] Review of Systems - Physician Review All systems were reviewed & negative as marked: Yes - Review of Systems Constitutional: Normal. absent: Fevers Eyes: Normal ENT: Normal Respiratory: Normal. absent: SOB Cardiovascular: Normal. absent: Chest Pain Gastrointestinal: Normal. absent: Abdominal Pain, Diarrhea, Nausea, Vomiting Genitourinary Male: Normal Musculoskeletal: Normal Skin: Normal Neurological: Normal Endocrine: Normal Hemo/Lymphatic: Normal Psychiatric: Anxiety, Other (Hallucinations ). absent: Suicidal Ideation Physical Exam Vital Signs Reviewed: Yes Vital Signs Temp Pulse Resp BP Pulse Ox 07/05/17 05:33 77 18 133/71 99 07/05/17 03:33 73 18 131/73 98 07/05/17 01:33 75 18 134/74 99 07/04/17 23:33 79 18 137/74 99 07/04/17 21:33 81 18 135/75 99 07/04/17 19:43 97.8 F 80 18 150/76 99 Temperature: Afebrile Blood Pressure: Normal Pulse: Regular Respiratory Rate: Normal Appearance: Positive for: Well-Appearing, Non-Toxic, Comfortable Pain Distress: None Mental Status: Positive for: Alert and Oriented X 3 - Systems Exam Head: Present: Atraumatic, Normocephalic Pupils: Present: PERRL Extroacular Muscles: Present: EOMI Conjunctiva: Present: Normal Mouth: Present: Moist Mucous Membranes Neck: Present: Normal Range of Motion Respiratory/Chest: Present: Clear to Auscultation, Good Air Exchange. No: Respiratory Distress, Accessory Muscle Use Cardiovascular: Present: Regular Rate and Rhythm, Normal S1, S2. No: Murmurs Abdomen: Present: Normal Bowel Sounds. No: Tenderness, Distention, Peritoneal Signs Back: Present: Normal Inspection Upper Extremity: Present: Normal Inspection. No: Cyanosis, Edema Lower Extremity: Present: Normal Inspection. No: Edema Neurological: Present: GCS=15, CN II-XII Intact, Speech Normal Skin: Present: Warm, Dry, Normal Color. No: Rashes Psychiatric: Present: Alert, Oriented x 3, Hallucinations. No: Suicidal Ideation, Homicidal Ideation Medical Decision Making ED Course and Treatment: 07/04/17 20:10 Impression: 27 year old male presents to the Emergency Department for psychiatric evaluation. Plan: -- CT of head -- Reassess and disposition Progress Notes: 07/04/17 21:48 CT of Head reviewed by radiologist, shows: FINDINGS: Brain: No intracranial hemorrhage. No mass. No definite edema. Ventricles: No hydrocephalus. Bones/joints: No acute fracture. Soft tissues: Unremarkable. Sinuses: Scattered minimal to mild mucosal thickening. Mastoid air cells: No mastoid effusion. Orbits: Unremarkable as visualized. IMPRESSION: 1. No definite acute intracranial abnormality. 2. Incidental/non-acute findings are described above. - RAD Interpretation Radiology Orders: 07/04/17 20:10 HEAD W/O CONTRAST [CT] Stat Engineering Systems Analyst: Radiologist - Medication Orders Current Medication Orders: Discontinued Medications Azithromycin (Zithromax) 500 mg PO ONCE STA PRN Reason: Protocol Stop: 07/05/17 06:00 Last Admin: 07/05/17 06:12 Dose: 500 mg Lorazepam (Ativan) 0.5 mg PO ONCE ONE PRN Reason: Protocol Stop: 07/04/17 23:21 Last Admin: 07/04/17 23:46 Dose: 0.5 mg Prednisone (Prednisone Tab) 60 mg PO ONCE STA Stop: 07/05/17 06:00 Last Admin: 07/05/17 06:12 Dose: 60 mg - Scribe Statement The provider has reviewed the documentation as recorded by the Marshallibsteph Granados. All medical record entries made by the Marshallibsteph were at my direction and personally dictated by me. I have reviewed the chart and agree that the record accurately reflects my personal performance of the history, physical exam, medical decision making, and the department course for this patient. I have also personally directed, reviewed, and agree with the discharge instructions and disposition. Disposition/Present on Arrival - Present on Arrival Any Indicators Present on Arrival: No History of DVT/PE: No History of Uncontrolled Diabetes: No Urinary Catheter: No History of Decub. Ulcer: No History Surgical Site Infection Following: None - Disposition Have Diagnosis and Disposition been Completed?: Yes Diagnosis: Substance abuse, Bronchitis Disposition: HOME/ ROUTINE Disposition Time: 05:30 Condition: GOOD Discharge Instructions (ExitCare): Acute Bronchitis (ED) Prescriptions: Prednisone [Deltasone] 20 mg PO DAILY #8 tablet predniSONE [predniSONE Tab] 20 mg PO TID #15 tab Azithromycin [Zithromax] 250 mg PO DAILY #4 tab Azithromycin [Zithromax] 250 mg PO DAILY #4 tab Referrals: PCP,NO [Primary Care Provider] - Follow up with primary Forms: [employer] (Lebanese)
--- NOTE | 2017-07-04 23:15 | CT ---
EXAM: CT Head Without Intravenous Contrast CLINICAL HISTORY: 27 years old, male; Pain; Headache; Headache not specified; Additional info: [facility] TECHNIQUE: Axial computed tomography images of the head/brain without intravenous contrast. All CT scans at this facility use one or more dose reduction techniques, viz.: automated exposure control; ma/kV adjustment per patient size (including targeted exams where dose is matched to indication; i.e. head); or iterative reconstruction technique. Coronal and sagittal reformatted images were created and reviewed. COMPARISON: CT - HEAD W/O CONTRAST 2017-03-24 08:13 FINDINGS: Brain: No intracranial hemorrhage. No mass. No definite edema. Ventricles: No hydrocephalus. Bones/joints: No acute fracture. Soft tissues: Unremarkable. Sinuses: Scattered minimal to mild mucosal thickening. Mastoid air cells: No mastoid effusion. Orbits: Unremarkable as visualized. IMPRESSION: 1. No definite acute intracranial abnormality. 2. Incidental/non-acute findings are described above.
[2017-07-05 05:56] VITALS: BP 133/71; PULSE 77
== END 2017-07-05 06:49 | disposition home or self-care (01) ==
LOC: ED 19:33
DX: F19.10 Other psychoactive substance abuse, uncomplicated (principal); J20.9 Acute bronchitis, unspecified; F17.210 Nicotine dependence, cigarettes, uncomplicated; Z87.828 Personal history of other (healed) physical injury and trauma

== ENCOUNTER 2017-08-13 02:47 | Emergency (ER) | payer MEDICAID, OTHER ==
[2017-08-13 02:47] VITALS: BMI 29.8
--- NOTE | 2017-08-13 03:28 | ED PDOC ---
Arrival/HPI - General Chief Complaint: Shortness Of Breath Time Seen by Provider: 08/13/17 02:55 Historian: Patient, Police - History of Present Illness Narrative History of Present Illness (Text): 08/13/17 04:02 A 27 year old male, with past medical history of asthma, is brought into the emergency department under [facility] custody for a complaint of shortness of breath.The patient denies fevers, chills, headache, dizziness, chest pain, dyspnea on exertion, cough, abdominal pain, nausea, vomiting, diarrhea, back pain, neck pain, urinary/bowel changes, or any other complaint. PMD: None Time/Duration: Prior to Arrival Symptom Onset: Sudden Symptom Course: Unchanged Activities at Onset: Rest, Light Context: Home Past Medical History - Provider Review Nursing Documentation Reviewed: Yes - Infectious Disease Hx of Infectious Diseases: None - Tetanus Immunization Tetanus Immunization: Unknown - Cardiac Hx Cardiac Disorders: No - Pulmonary Hx Respiratory Disorders: Yes Hx Asthma: Yes - Neurological Hx Neurological Disorder: No - HEENT Hx HEENT Disorder: No - Renal Hx Renal Disorder: No - Endocrine/Metabolic Hx Endocrine Disorders: No - Hematological/Oncological Hx Blood Disorders: No - Integumentary Hx Dermatological Disorder: No - Musculoskeletal/Rheumatological Hx Musculoskeletal Disorders: No - Gastrointestinal Hx Gastrointestinal Disorders: No - Genitourinary/Gynecological Hx Genitourinary Disorders: No - Psychiatric Hx Bipolar Disorder: Yes Hx Depression: No Hx Substance Use: Yes - Surgical History Hx Tonsillectomy: Yes - Anesthesia Hx Anesthesia: Yes Hx Anesthesia Reactions: No Hx Malignant Hyperthermia: No - Suicidal Assessment Feels Threatened In Home Enviroment: No Family/Social History - Physician Review Nursing Documentation Reviewed: Yes Family/Social History: No Known Family HX Smoking Status: Light Smoker < 10 Cigarettes Daily Hx Alcohol Use: No Hx Substance Use: Yes Substance used: marijuana/pcp Allergies/Home Meds Allergies/Adverse Reactions: Allergies No Known Allergies Allergy (Verified 05/15/17 18:23) Review of Systems - Physician Review All systems were reviewed & negative as marked: Yes - Review of Systems Constitutional: absent: Fevers, Night Sweats Respiratory: SOB. absent: Cough Cardiovascular: absent: Chest Pain, REYEZ Gastrointestinal: absent: Stool Changes, Diarrhea, Nausea Genitourinary Male: absent: Urinary Output Changes Musculoskeletal: absent: Back Pain, Neck Pain Neurological: absent: Headache, Dizziness Physical Exam Vital Signs Reviewed: Yes Vital Signs Temp Pulse Resp BP Pulse Ox 08/13/17 03:39 98.6 F 89 16 110/84 99 08/13/17 02:57 97.8 F 97 H 16 119/70 98 Temperature: Afebrile Blood Pressure: Normal Pulse: Tachycardic Respiratory Rate: Normal Appearance: Positive for: Well-Appearing, Comfortable Pain Distress: None Mental Status: Positive for: Alert and Oriented X 3, other (Talkative) - Systems Exam Head: Present: Atraumatic, Normocephalic Pupils: Present: PERRL Extroacular Muscles: Present: EOMI Conjunctiva: Present: Normal Mouth: Present: Moist Mucous Membranes Neck: Present: Normal Range of Motion Respiratory/Chest: Present: Clear to Auscultation, Good Air Exchange. No: Respiratory Distress, Accessory Muscle Use Cardiovascular: Present: Regular Rate and Rhythm, Normal S1, S2. No: Murmurs Abdomen: Present: Normal Bowel Sounds. No: Tenderness, Distention, Peritoneal Signs Back: Present: Normal Inspection Upper Extremity: Present: Normal Inspection. No: Cyanosis, Edema Lower Extremity: Present: Normal Inspection. No: Edema Neurological: Present: GCS=15, CN II-XII Intact, Speech Normal Skin: Present: Warm, Dry, Normal Color. No: Rashes Psychiatric: Present: Alert, Oriented x 3, Normal Insight, Normal Concentration Medical Decision Making ED Course and Treatment: 08/13/17 04:03 Impression: A 27 year old male presents to the emergency department complaining of shortness of breath. Plan: -- Reassess and disposition Progress Notes: - Scribe Statement The provider has reviewed the documentation as recorded by the Jakob Lugo Provider Scribe Attestation: All medical record entries made by the Scribe were at my direction and personally dictated by me. I have reviewed the chart and agree that the record accurately reflects my personal performance of the history, physical exam, medical decision making, and the department course for this patient. I have also personally directed, reviewed, and agree with the discharge instructions and disposition. Disposition/Present on Arrival - Present on Arrival Any Indicators Present on Arrival: No History of DVT/PE: No History of Uncontrolled Diabetes: No Urinary Catheter: No History of Decub. Ulcer: No History Surgical Site Infection Following: None - Disposition Have Diagnosis and Disposition been Completed?: Yes Diagnosis: Hyperventilation Disposition: RELEASED IN POLICE CUSTODY Disposition Time: 03:30 Patient Plan: Discharge Condition: STABLE Additional Instructions: Medically stable for release into police custody, with no contraindication to incarceration. Referrals: PCP,NO [Primary Care Provider] - Follow up with primary Forms: [employer] (Hungarian)
[2017-08-13 03:40] VITALS: BP 110/84; PULSE 89; RESP 16; TEMP 98.6; O2SAT 99
== END 2017-08-13 03:39 ==
LOC: ED 02:47
DX: R06.4 Hyperventilation (principal); Z65.3 Problems related to other legal circumstances

== ENCOUNTER 2017-09-18 18:22 | Emergency (ER) | payer MEDICAID ==
--- NOTE | 2017-09-18 19:17 | ED PDOC ---
Arrival/HPI - General Time Seen by Provider: 09/18/17 19:11 Historian: Patient - History of Present Illness Narrative History of Present Illness (Text): 09/18/17 19:14 27yo male with PMhx of Asthma who present with a referral from his PMD for left knee xray. Patient history of left knee injury and cyst x years. States he developed OA on the knee and it recently became stiff and difficult to walk. He saw his PMD and was referred to for xray to r/o worsening cyst. States he takes Tramadol for the pain. Denies calf pain, swelling, redness, recent trauma. Past Medical History - Provider Review Nursing Documentation Reviewed: Yes - Infectious Disease Hx of Infectious Diseases: None - Tetanus Immunization Tetanus Immunization: Unknown - Cardiac Hx Cardiac Disorders: No - Pulmonary Hx Respiratory Disorders: Yes Hx Asthma: Yes - Neurological Hx Neurological Disorder: No - HEENT Hx HEENT Disorder: No - Renal Hx Renal Disorder: No - Endocrine/Metabolic Hx Endocrine Disorders: No - Hematological/Oncological Hx Blood Disorders: No - Integumentary Hx Dermatological Disorder: No - Musculoskeletal/Rheumatological Hx Musculoskeletal Disorders: No - Gastrointestinal Hx Gastrointestinal Disorders: No - Genitourinary/Gynecological Hx Genitourinary Disorders: No - Psychiatric Hx Bipolar Disorder: Yes Hx Depression: No Hx Substance Use: Yes - Surgical History Hx Tonsillectomy: Yes - Anesthesia Hx Anesthesia: Yes Hx Anesthesia Reactions: No Hx Malignant Hyperthermia: No - Suicidal Assessment Feels Threatened In Home Enviroment: No Family/Social History - Physician Review Nursing Documentation Reviewed: Yes Family/Social History: Unknown Family HX Smoking Status: Light Smoker < 10 Cigarettes Daily Hx Alcohol Use: No Hx Substance Use: Yes Substance used: marijuana/pcp Allergies/Home Meds Allergies/Adverse Reactions: Allergies No Known Allergies Allergy (Verified 09/18/17 19:18) Review of Systems - Physician Review All systems were reviewed & negative as marked: Yes - Review of Systems Constitutional: Normal Eyes: Normal ENT: Normal Respiratory: Normal Cardiovascular: Normal Gastrointestinal: Normal Genitourinary Male: Normal Musculoskeletal: Arthralgias (LEft knee) Skin: Normal Neurological: Normal Endocrine: Normal Hemo/Lymphatic: Normal Psychiatric: Normal Physical Exam Vital Signs Reviewed: Yes Vital Signs Temp Pulse Resp BP Pulse Ox 09/18/17 20:01 98.7 F 54 L 20 126/64 98 Temperature: Afebrile Blood Pressure: Normal Pulse: Regular Respiratory Rate: Normal Appearance: Positive for: Well-Appearing, Non-Toxic, Comfortable Pain Distress: None Mental Status: Positive for: Alert and Oriented X 3 - Systems Exam Head: Present: Atraumatic, Normocephalic Pupils: Present: PERRL Extroacular Muscles: Present: EOMI Conjunctiva: Present: Normal Mouth: Present: Moist Mucous Membranes Neck: Present: Normal Range of Motion Respiratory/Chest: Present: Clear to Auscultation, Good Air Exchange. No: Respiratory Distress, Accessory Muscle Use Cardiovascular: Present: Regular Rate and Rhythm, Normal S1, S2. No: Murmurs Abdomen: No: Tenderness, Distention, Peritoneal Signs Back: Present: Normal Inspection Upper Extremity: Present: Normal Inspection. No: Cyanosis, Edema Lower Extremity: Present: Normal Inspection, NORMAL PULSES, Normal ROM, Neurovascularly Intact. No: Edema, Tenderness, Swelling, Erythema Neurological: Present: GCS=15, CN II-XII Intact, Speech Normal Skin: Present: Warm, Dry, Normal Color. No: Rashes Psychiatric: Present: Alert, Oriented x 3, Normal Insight, Normal Concentration Medical Decision Making ED Course and Treatment: 09/18/17 20:10 Pt in ED for stated history. He was ambulatory and in no distress. Left knee xray - No acute finding. Joint narrowing. Osteophyte and cyst noted. this is comparable to his previous xray. Result was DW the pt. He was advised to f/u with his PMD. - RAD Interpretation Radiology Orders: 09/18/17 19:13 KNEE WITH PATELLA LEFT 3 VIEW [RAD] Stat Disposition/Present on Arrival - Present on Arrival Any Indicators Present on Arrival: No History of DVT/PE: No History of Uncontrolled Diabetes: No Urinary Catheter: No History Surgical Site Infection Following: None - Disposition Have Diagnosis and Disposition been Completed?: Yes Diagnosis: Knee pain Disposition: HOME/ ROUTINE Disposition Time: 19:55 Patient Plan: Discharge Patient Problems: Current Active Problems Problem Status Onset Knee pain Acute Condition: STABLE Discharge Instructions (ExitCare): Chronic Knee Pain Additional Instructions: Follow up with your doctor/Orthopedist Return to ED for anew symptoms Referrals: Kell Hoff MD [Primary Care Provider] - Follow up with primary Guzman Everett MD [Staff Provider] - Follow up with primary
[2017-09-18 19:29] VITALS: BMI 28.9
[2017-09-18 20:02] VITALS: BP 126/64; PULSE 54; RESP 20; TEMP 98.7; O2SAT 98
--- NOTE | 2017-09-19 07:56 | RAD ---
PROCEDURE: Left Knee Radiographs. HISTORY: Pain. COMPARISON: None. FINDINGS: BONES: A small bony fragment is seen in the AP view between the tibial spines which is nonspecific. This is the none of the likely site for fracture with this bony focus appearing adequately corticated the periphery. Consider follow-up MRI if clinically warranted. No large fracture is identified or subluxation/ dislocation. No destructive bony lesion appreciable. JOINTS: Normal. No osteoarthritis. JOINT EFFUSION: None. OTHER FINDINGS: None. IMPRESSION: Small bony fragments seen in between the plane of the tibial spines, only in the frontal view. This is not likely to represent an acute fracture though it is difficult to completely exclude one as well. Consider follow-up MRI if clinically warranted. No subluxation or dislocation.
== END 2017-09-18 20:10 | disposition home or self-care (01) ==
LOC: ED 18:22
DX: M25.562 Pain in left knee (principal); F17.210 Nicotine dependence, cigarettes, uncomplicated

== ENCOUNTER 2017-09-21 17:30 | Emergency (ER) | payer MEDICAID ==
[2017-09-21 17:46] VITALS: RESP 17
[2017-09-21 17:47] VITALS: BMI 29.1
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
[2017-09-21 21:50] VITALS: BP 135/85; PULSE 81; TEMP 98.2; O2SAT 100
== END 2017-09-21 21:50 | disposition home or self-care (01) ==
LOC: ED 17:30
DX: S09.90XA Unspecified injury of head, initial encounter (principal); W22.8XXA Striking against or struck by other objects, initial encounter; Y92.9 Unspecified place or not applicable

== ENCOUNTER 2017-12-11 02:47 | Emergency (ER) | payer MEDICAID, OTHER ==
[2017-12-11 03:13] VITALS: BMI 30.7
--- NOTE | 2017-12-11 03:15 | ED PDOC ---
Arrival/HPI - General Time Seen by Provider: 12/11/17 02:57 Historian: Patient - History of Present Illness Narrative History of Present Illness (Text): 12/11/17 03:15 Daquan Hampton Jr is a 27 year old male, whose past medical history includes asthma and bipolar disorder, who presents to the Emergency department complaining of left knee pain tonight. Patient states he was recently seen at [facility] [place] for similar complaints a few weeks prior, had US Duplex Lower Extremities and XR Left Knee performed, and was diagnosed with 2 Motley's cysts. Patient states tonight left knee pain returned. Patient denies any recent trauma/injury , weakness/numbness/tingling in the extremity, decreased range of motion, or any other complaints. Symptom Onset: Gradual Symptom Course: Unchanged Activities at Onset: Light Context: Home Past Medical History - Provider Review Nursing Documentation Reviewed: Yes - Infectious Disease Hx of Infectious Diseases: None - Tetanus Immunization Tetanus Immunization: Unknown - Cardiac Hx Cardiac Disorders: No - Pulmonary Hx Respiratory Disorders: Yes Hx Asthma: Yes - Neurological Hx Neurological Disorder: No - HEENT Hx HEENT Disorder: No - Renal Hx Renal Disorder: No - Endocrine/Metabolic Hx Endocrine Disorders: No - Hematological/Oncological Hx Blood Disorders: No - Integumentary Hx Dermatological Disorder: No - Musculoskeletal/Rheumatological Hx Musculoskeletal Disorders: No - Gastrointestinal Hx Gastrointestinal Disorders: No - Genitourinary/Gynecological Hx Genitourinary Disorders: No - Psychiatric Hx Bipolar Disorder: Yes Hx Substance Use: Yes - Surgical History Hx Tonsillectomy: Yes - Anesthesia Hx Anesthesia: Yes Hx Anesthesia Reactions: No Hx Malignant Hyperthermia: No - Suicidal Assessment Feels Threatened In Home Enviroment: No Family/Social History - Physician Review Nursing Documentation Reviewed: Yes Family/Social History: Unknown Family HX Hx Alcohol Use: No Hx Substance Use: Yes Substance used: marijuana/pcp Allergies/Home Meds Allergies/Adverse Reactions: Allergies No Known Allergies Allergy (Verified 12/11/17 03:12) Home Medications: Home Meds Medication Instructions Recorded Confirmed No Known Home Med 09/21/17 12/11/17 Review of Systems - Physician Review All systems were reviewed & negative as marked: Yes - Review of Systems Constitutional: Normal. absent: Fevers Eyes: Normal ENT: Normal Respiratory: Normal. absent: SOB, Cough Cardiovascular: Normal. absent: Chest Pain Gastrointestinal: Normal. absent: Abdominal Pain, Diarrhea, Nausea, Vomiting Genitourinary Male: Normal. absent: Dysuria, Frequency, Hematuria, Urinary Output Changes Musculoskeletal: Arthralgias (+left knee pain). absent: Back Pain, Neck Pain Skin: Normal. absent: Rash Neurological: Normal. absent: Headache, Dizziness Endocrine: Normal Hemo/Lymphatic: Normal Psychiatric: Normal Physical Exam Vital Signs Reviewed: Yes Vital Signs Temp Pulse Resp BP Pulse Ox 12/11/17 03:16 98.1 F 63 18 121/54 L 100 Temperature: Afebrile Blood Pressure: Normal Pulse: Regular Respiratory Rate: Normal Appearance: Positive for: Well-Appearing, Non-Toxic, Comfortable Pain Distress: None Mental Status: Positive for: Alert and Oriented X 3 - Systems Exam Head: Present: Atraumatic, Normocephalic Pupils: Present: PERRL Extroacular Muscles: Present: EOMI Conjunctiva: Present: Normal Mouth: Present: Moist Mucous Membranes Neck: Present: Normal Range of Motion Respiratory/Chest: Present: Clear to Auscultation, Good Air Exchange. No: Respiratory Distress, Accessory Muscle Use Cardiovascular: Present: Regular Rate and Rhythm, Normal S1, S2. No: Murmurs Abdomen: No: Tenderness, Distention, Peritoneal Signs Back: Present: Normal Inspection Upper Extremity: Present: Normal Inspection. No: Cyanosis, Edema Lower Extremity: Present: Normal Inspection, NORMAL PULSES, Normal ROM, Neurovascularly Intact, Capillary Refill < 2 s. No: Edema, CALF TENDERNESS, Cyanosis, Tenderness, Swelling, Erythema, Deformity, Temperature Abnormalties Neurological: Present: GCS=15, CN II-XII Intact, Speech Normal Skin: Present: Warm, Dry, Normal Color. No: Rashes Psychiatric: Present: Alert, Oriented x 3, Normal Insight, Normal Concentration Medical Decision Making ED Course and Treatment: 12/11/17 03:15 Impression: 27 year old male complaining of left knee pain tonight. Plan: -- US Duplex Lower Extremities -- Reassess and disposition Progress Notes: 12/11/17 05:01 US Duplex Lower Extremities negative for DVT. 12/11/17 05:23 On re-evaluation, patient feels better and is in no acute distress. I have discussed the results and plan with the patient, who expresses understanding. Patient in agreement with plan to be discharged home. Patient is stable for discharge. Patient was instructed to follow up with physician/orthopedics/ clinic or return if symptoms worsen or new concerning symptoms arise. - RAD Interpretation Radiology Orders: 12/11/17 03:16 DUPLEX LOWER EXTRM VEIN LEFT [US] Stat - Medication Orders Current Medication Orders: Discontinued Medications Ibuprofen (Motrin Tab) 400 mg PO ONCE STA Stop: 12/11/17 05:21 Last Admin: 12/11/17 05:37 Dose: 400 mg - Scribe Statement The provider has reviewed the documentation as recorded by the Jakob Peterson Provider Scribe Attestation: All medical record entries made by the Scribe were at my direction and personally dictated by me. I have reviewed the chart and agree that the record accurately reflects my personal performance of the history, physical exam, medical decision making, and the department course for this patient. I have also personally directed, reviewed, and agree with the discharge instructions and disposition. Disposition/Present on Arrival - Present on Arrival Any Indicators Present on Arrival: No History of DVT/PE: No History of Uncontrolled Diabetes: No Urinary Catheter: No History Surgical Site Infection Following: None - Disposition Have Diagnosis and Disposition been Completed?: Yes Diagnosis: Knee pain, left Disposition: HOME/ ROUTINE Disposition Time: 05:23 Condition: GOOD Discharge Instructions (ExitCare): Chronic Knee Pain Referrals: Kell Hoff MD [Primary Care Provider] - Follow up with primary Forms: [employer] (Turkish)
[2017-12-11 03:17] VITALS: BP 121/54; PULSE 63; RESP 18; TEMP 98.1; O2SAT 100
--- NOTE | 2017-12-11 09:21 | US ---
PROCEDURE: Left lower extremity venous US HISTORY: Leg pain and swelling. Evaluate for DVT. PHYSICIAN(S): Brannon Hernandez MD. TECHNIQUE: Duplex sonography and color-flow Doppler with graded compression were used to evaluate the deep venous system of the left lower extremity. FINDINGS: The visualized deep venous system of the left lower extremity is sonographically normal and compressible. Normal wave forms and augmentation are seen. There is no sonographic evidence for deep venous thrombosis in the visualized segments of the left lower extremity. IMPRESSION: 1. No sonographic evidence for deep venous thrombosis in the visualized segments of the left lower extremity.
== END 2017-12-11 05:48 | disposition home or self-care (01) ==
LOC: ED 02:47
DX: M25.562 Pain in left knee (principal)

== ENCOUNTER 2018-04-10 21:38 | Emergency (ER) | payer MEDICAID ==
[2018-04-10 21:52] VITALS: PULSE 82; BMI 28.3
[2018-04-10] MEDS: Albuterol-Ipratrop 3 mg / 0.5 (3 ml) UD IH SCH ×3 (22:00→22:30)
--- NOTE | 2018-04-10 22:43 | ED PDOC ---
Arrival/HPI - General Historian: Patient - History of Present Illness Narrative History of Present Illness (Text): 04/10/18 22:22 28yr old male presents today with asthma exacerbation. pt states he has been having URI symptoms for the past few days and states today he started to have an asthma attack and ran out of his inhaler. pt admits to smoking. no fever/chills. no dizziness or weakness. no vomiting/diarrhea. no abdominal pain. no other complaints. Symptom Onset: Gradual Symptom Course: Worsening <Arianna Finn - Last Filed: 04/11/18 01:26> <Everardo Pressley - Last Filed: 04/11/18 19:39> - General Chief Complaint: Respiratory Distress Time Seen by Provider: 04/10/18 21:40 Past Medical History - Provider Review Nursing Documentation Reviewed: Yes - Travel History Have you recently traveled outside [place] w/in the past 3 mons?: No - Infectious Disease Hx of Infectious Diseases: None - Tetanus Immunization Tetanus Immunization: Unknown - Cardiac Hx Cardiac Disorders: No - Pulmonary Hx Respiratory Disorders: Yes Hx Asthma: Yes - Neurological Hx Neurological Disorder: No - HEENT Hx HEENT Disorder: No - Renal Hx Renal Disorder: No - Endocrine/Metabolic Hx Endocrine Disorders: No - Hematological/Oncological Hx Blood Disorders: No - Integumentary Hx Dermatological Disorder: No - Musculoskeletal/Rheumatological Hx Musculoskeletal Disorders: No - Gastrointestinal Hx Gastrointestinal Disorders: No - Genitourinary/Gynecological Hx Genitourinary Disorders: No - Psychiatric Hx Bipolar Disorder: Yes Hx Substance Use: Yes - Surgical History Hx Tonsillectomy: Yes - Anesthesia Hx Anesthesia: Yes Hx Anesthesia Reactions: No Hx Malignant Hyperthermia: No - Suicidal Assessment Feels Threatened In Home Enviroment: No <Arianna Finn - Last Filed: 04/11/18 01:26> Family/Social History - Physician Review Nursing Documentation Reviewed: Yes Family/Social History: Unknown Family HX Smoking Status: Light Smoker < 10 Cigarettes Daily Hx Alcohol Use: No Hx Substance Use: Yes Substance used: marijuana/pcp <Arianna Finn - Last Filed: 04/11/18 01:26> Allergies/Home Meds <Arianna Finn - Last Filed: 04/11/18 01:26> <Everardo Pressley - Last Filed: 04/11/18 19:39> Allergies/Adverse Reactions: Allergies No Known Allergies Allergy (Verified 04/10/18 21:49) Review of Systems - Review of Systems Constitutional: absent: Fatigue, Fevers ENT: Sore Throat, Sinus Congestion Respiratory: SOB, Cough, Wheezing Cardiovascular: absent: Chest Pain, Palpitations Gastrointestinal: absent: Abdominal Pain, Nausea, Vomiting Genitourinary Male: absent: Dysuria Musculoskeletal: absent: Arthralgias, Back Pain, Neck Pain Skin: absent: Rash, Pruritis Neurological: absent: Headache, Dizziness Psychiatric: absent: Anxiety, Depression <Arianna Finn - Last Filed: 04/11/18 01:26> Physical Exam Vital Signs Reviewed: Yes Vital Signs Pulse Resp BP Pulse Ox 04/10/18 21:52 82 22 137/65 100 Temperature: Afebrile Blood Pressure: Normal Pulse: Regular Respiratory Rate: Tachypneic Appearance: Positive for: Well-Appearing, Non-Toxic, Comfortable Pain Distress: None Mental Status: Positive for: Alert and Oriented X 3 - Systems Exam Head: Present: Atraumatic Mouth: Present: Moist Mucous Membranes, Normal Lips, Normal Tounge. No: Drooling, Trismus Pharnyx: Present: Normal. No: ERYTHEMA, EXUDATE Nose (External): Present: Atraumatic Nose (Internal): Present: Normal Inspection Neck: Present: Normal Range of Motion, Trachea Midline Respiratory/Chest: Present: Good Air Exchange, Wheezes, Rhonchi. No: Clear to Auscultation, Respiratory Distress, Accessory Muscle Use, Retracting Cardiovascular: Present: Regular Rate and Rhythm. No: Murmurs Abdomen: No: Tenderness Back: Present: Normal Inspection Upper Extremity: Present: Normal ROM Lower Extremity: Present: Normal ROM Neurological: Present: GCS=15, Speech Normal Skin: Present: Warm, Dry, Normal Color. No: Rashes Psychiatric: Present: Alert, Oriented x 3 <Arianna Finn - Last Filed: 04/11/18 01:26> Vital Signs Temp Pulse Resp BP Pulse Ox 04/11/18 00:01 97 04/10/18 23:49 18 97 04/10/18 23:37 82 18 124/85 98 04/10/18 21:52 98.1 F 82 22 137/65 100 04/10/18 21:50 18 100 <Everardo Pressley - Last Filed: 04/11/18 19:39> Medical Decision Making ED Course and Treatment: 04/10/18 23:32 28yr old male with asthma exacerbation. pt given 3 duonebs and solumedrol 125mg IV cxr; no infiltrate. pt reassessment; pt feeling much better; lungs cta bilaterally. vitals stable o2 saturation 98% zithromax given po. advised patient to f/u with pmd and manager regional. advised taking medications as prescribed and return immediately if symptoms worsen,persist or if new symptoms develop. Patient verbalizes understanding of discharge instructions and need for immediate followup. all aspects of this case were discussed the attending of record. impression; asthma exacerbation zithromax daily x 4 days albuterol nebulizer; 3 times daily as needed for cough/asthma use albuterol inhaler every 4-6 hours as needed for cough/asthma prednisone daily x 4 days increase fluids follow up with the primary care physician within the next 2 days. follow up with the manager regional within the next 2 days. return if symptoms worsen,persist or if new symptoms develop. - RAD Interpretation Radiology Orders: 04/10/18 21:54 CHEST PORTABLE [RAD] Stat - Medication Orders Current Medication Orders: Albuterol/Ipratropium (Duoneb 3 Mg/0.5 Mg (3 Ml) Ud) 3 ml IH Q15M DAVY Stop: 04/10/18 22:31 Last Admin: 04/10/18 22:00 Dose: 3 ml Discontinued Medications Methylprednisolone (Solu-Medrol) 125 mg IVP STAT STA Stop: 04/10/18 21:54 Last Admin: 04/10/18 22:10 Dose: 125 mg IVP Administration Document 04/10/18 22:10 SS (Rec: 04/10/18 22:10 [id number]) Charges for Administration # of IVP Administrations 1 <Arianna Finn - Last Filed: 04/11/18 01:26> - RAD Interpretation Radiology Orders: 04/10/18 21:54 CHEST PORTABLE [RAD] Stat - Medication Orders Current Medication Orders: Discontinued Medications Albuterol/Ipratropium (Duoneb 3 Mg/0.5 Mg (3 Ml) Ud) 3 ml IH Q15M DAVY Stop: 04/10/18 22:31 Last Admin: 04/10/18 22:30 Dose: 3 ml Azithromycin (Zithromax) 500 mg PO STAT STA; Protocol Stop: 04/10/18 23:17 Last Admin: 04/10/18 23:40 Dose: 500 mg Methylprednisolone (Solu-Medrol) 125 mg IVP STAT STA Stop: 04/10/18 21:54 Last Admin: 04/10/18 22:10 Dose: 125 mg IVP Administration Document 04/10/18 22:10 SS (Rec: 04/10/18 22:10 SS [id number]) Charges for Administration # of IVP Administrations 1 <Everardo Pressley - Last Filed: 04/11/18 19:39> - PA / [employer]TEGRATED [employer]ETING SPECIALIST / Resident Statement MD/DO has reviewed & agrees with the documentation as recorded. <Everardo Pressley - Last Filed: 04/11/18 19:39> Disposition/Present on Arrival - Present on Arrival Any Indicators Present on Arrival: No History of DVT/PE: No History of Uncontrolled Diabetes: No Urinary Catheter: No History of Decub. Ulcer: No History Surgical Site Infection Following: None - Disposition Have Diagnosis and Disposition been Completed?: Yes Disposition Time: 23:00 Patient Plan: Discharge <Arianna Finn - Last Filed: 04/11/18 01:26> <Everardo Pressley - Last Filed: 04/11/18 19:39> - Disposition Diagnosis: Asthma exacerbation Disposition: HOME/ ROUTINE Condition: GOOD Discharge Instructions (ExitCare): Asthma, Adult (DC) Additional Instructions: zithromax daily x 4 days albuterol nebulizer; 3 times daily as needed for cough/asthma use albuterol inhaler every 4-6 hours as needed for cough/asthma prednisone daily x 4 days increase fluids follow up with the primary care physician within the next 2 days. follow up with the manager regional within the next 2 days. return if symptoms worsen,persist or if new symptoms develop. Prescriptions: RX: Albuterol 0.083% [Albuterol 0.083% Inhal Rachael (2.5 mg/3 ml) UD] 1 vial IH TID PRN #1 packet PRN Reason: Cough RX: Nebulizer [Compact Compressor Nebulizer] 1 dev XX PRN PRN #1 dev PRN Reason: Cough RX: predniSONE [predniSONE Tab] 3 tab PO DAILY #12 tab RX: Albuterol HFA [Ventolin HFA 90 mcg/actuation (8 g)] 2 puff IH [id number] PRN #1 inhaler PRN Reason: Cough Azithromycin [Zithromax] 250 mg PO DAILY #4 tab Referrals: Twan Ware MD [Staff Provider] - Follow up with primary Yovana Muir MD [Medical Doctor] - Follow up with primary [facility] [employer] [facility] [Outside] - Follow up with primary Forms: [employer] (Palestinian), WORK NOTE
[2018-04-11 10:27] VITALS: BP 124/85; RESP 18; TEMP 98.1; O2SAT 97
--- NOTE | 2018-04-11 13:20 | RAD ---
Date of service: 04/10/2018 HISTORY: cough/asthma COMPARISON: 05/15/2017 FINDINGS: LUNGS: No active pulmonary disease. PLEURA: No significant pleural effusion identified, no pneumothorax apparent. CARDIOVASCULAR: No aortic atherosclerotic calcification present OSSEOUS STRUCTURES: No significant abnormalities. VISUALIZED UPPER ABDOMEN: Normal. OTHER FINDINGS: None. IMPRESSION: No active disease.
== END 2018-04-11 00:01 | disposition home or self-care (01) ==
LOC: ED 21:38
DX: J45.901 Unspecified asthma with (acute) exacerbation (principal); F17.210 Nicotine dependence, cigarettes, uncomplicated
CPT/HCPCS: 71045; 96374; 99283; J2930

== ENCOUNTER 2018-04-22 08:11 | Emergency (ER) | payer MEDICAID ==
[2018-04-22 08:33] VITALS: RESP 18; TEMP 97.5; BMI 28.3
--- NOTE | 2018-04-22 08:49 | ED PDOC ---
Arrival/HPI - General Time Seen by Provider: 04/22/18 08:13 Historian: Patient - History of Present Illness Narrative History of Present Illness (Text): 28 y/o M w/ h/o asthma(has an inhaler and nebulizer machine at home), substance abuse, bipolar disorder, and anxiety, presenting to the emergency department complaining of nausea and shakiness since earlier this morning. Patient reports upon waking up, began experiencing nausea a including having 1 episode of non- bloody, non-bilious vomiting (yellowish in color), abdominal pain, and dizziness. He denies consuming food due to concern of emesis. He mentions having experienced some shortness of breath recently due to asthma. Of note, he admits to drinking a lot of alcohol yesterday evening. Patient denies any chest pain, suicidal/homicidal ideation, or any other complaints at this time. Patient refuses receiving any nebulizer treatments for asthma at this time due feelings of tremulousness at this time. PMD: Dr. Hoff Time/Duration: Other (earlier this morning upon waking up) Symptom Onset: Sudden Symptom Course: Unchanged Severity Level: Moderate Context: Home Past Medical History - Provider Review Nursing Documentation Reviewed: Yes - Travel History Have you recently traveled outside [place] w/in the past 3 mons?: No - Infectious Disease Hx of Infectious Diseases: None - Tetanus Immunization Tetanus Immunization: Unknown - Cardiac Hx Cardiac Disorders: No - Pulmonary Hx Respiratory Disorders: Yes Hx Asthma: Yes - Neurological Hx Neurological Disorder: No - HEENT Hx HEENT Disorder: No - Renal Hx Renal Disorder: No - Endocrine/Metabolic Hx Endocrine Disorders: No - Hematological/Oncological Hx Blood Disorders: No - Integumentary Hx Dermatological Disorder: No - Musculoskeletal/Rheumatological Hx Musculoskeletal Disorders: No - Gastrointestinal Hx Gastrointestinal Disorders: No - Genitourinary/Gynecological Hx Genitourinary Disorders: No - Psychiatric Hx Bipolar Disorder: Yes Hx Substance Use: Yes - Surgical History Hx Tonsillectomy: Yes - Anesthesia Hx Anesthesia: Yes Hx Anesthesia Reactions: No Hx Malignant Hyperthermia: No - Suicidal Assessment Feels Threatened In Home Enviroment: No Family/Social History - Physician Review Nursing Documentation Reviewed: Yes Family/Social History: No Known Family HX Smoking Status: Light Smoker < 10 Cigarettes Daily Hx Alcohol Use: No Hx Substance Use: Yes Substance used: marijuana/pcp Allergies/Home Meds Allergies/Adverse Reactions: Allergies No Known Allergies Allergy (Verified 04/10/18 21:49) Review of Systems - Physician Review All systems were reviewed & negative as marked: Yes - Review of Systems Constitutional: Other (shakiness) Respiratory: SOB (asthma-related) Cardiovascular: absent: Chest Pain Gastrointestinal: Abdominal Pain, Nausea, Vomiting (1 episode this morning (yellowish in color)) Neurological: Dizziness Psychiatric: Anxiety. absent: Suicidal Ideation (and no homicidal ideation) Physical Exam Vital Signs Reviewed: Yes Vital Signs Temp Pulse Resp BP Pulse Ox 04/22/18 08:32 97.5 F L 66 18 112/68 100 Temperature: Afebrile Blood Pressure: Normal Pulse: Regular Respiratory Rate: Normal Appearance: Positive for: Well-Appearing, Non-Toxic, Comfortable, Other (patient is tremulous) Pain Distress: None Mental Status: Positive for: Alert and Oriented X 3 - Systems Exam Head: Present: Atraumatic, Normocephalic Pupils: Present: PERRL Extroacular Muscles: Present: EOMI Conjunctiva: Present: Normal Mouth: Present: Moist Mucous Membranes Neck: Present: Normal Range of Motion Respiratory/Chest: Present: Clear to Auscultation, Good Air Exchange. No: Respiratory Distress, Accessory Muscle Use Cardiovascular: Present: Regular Rate and Rhythm, Normal S1, S2. No: Murmurs Abdomen: No: Tenderness, Distention, Peritoneal Signs Back: Present: Normal Inspection Upper Extremity: Present: Normal Inspection. No: Cyanosis, Edema Lower Extremity: Present: Normal Inspection. No: Edema Neurological: Present: GCS=15, CN II-XII Intact, Speech Normal Skin: Present: Warm, Dry, Normal Color. No: Rashes Psychiatric: Present: Alert, Oriented x 3, Normal Insight, Normal Concentration Medical Decision Making ED Course and Treatment: 04/22/18 08:49 Impression: 28 year old male with nausea, abdominal pain, 1 episode of vomiting this morning, dizziness, and shakiness. Physical exam shows patient appears tremulous; no other acute findings on physical examination. Plan: -- Urinalysis -- Nasal cannula O2 -- Zofran -- Xanax -- Reassess and disposition Prior Visits: Notes and results from previous visits were reviewed. Patient was last seen in the emergency department on 04/10/2018 for asthma exacerbation. Patient was discharged home. Progress Notes: 04/22/18 09:42 Patient reassessed and feels better. He is advised to continue supportive management at home. He will follow up with his PCP. He is stable for discharge. - Medication Orders Current Medication Orders: Discontinued Medications Alprazolam (Xanax) 0.5 mg PO STAT STA; Protocol Stop: 04/22/18 08:39 Ondansetron HCl (Zofran Odt) 4 mg PO STAT STA Stop: 04/22/18 08:39 - Scribe Statement The provider has reviewed the documentation as recorded by the Jakob Correa Provider Scribe Attestation: All medical record entries made by the Scribe were at my direction and personally dictated by me. I have reviewed the chart and agree that the record accurately reflects my personal performance of the history, physical exam, medical decision making, and the department course for this patient. I have also personally directed, reviewed, and agree with the discharge instructions and disposition. Disposition/Present on Arrival - Present on Arrival Any Indicators Present on Arrival: No History of DVT/PE: No History of Uncontrolled Diabetes: No Urinary Catheter: No History Surgical Site Infection Following: None - Disposition Have Diagnosis and Disposition been Completed?: Yes Diagnosis: Nausea & vomiting, Anxiety Disposition Time: 09:41 Patient Plan: Discharge Patient Problems: Current Active Problems Problem Status Onset Anxiety Acute Nausea & vomiting Acute Condition: IMPROVED Discharge Instructions (ExitCare): Anxiety, Adult (DC), Nausea and Vomiting, Adult (DC) Print Language: FAROESE Additional Instructions: All medical record entries made by the Scribe were at my direction and personally dictated by me. I have reviewed the chart and agree that the record accurately reflects my personal performance of the history, physical exam, medical decision making, and the department course for this patient. I have also personally directed, reviewed, and agree with the discharge instructions and disposition. Prescriptions: Ondansetron ODT [Zofran ODT] 4 mg PO PRN PRN #4 odt PRN Reason: Nausea/Vomiting Referrals: Kell Hoff MD [Primary Care Provider] - Follow up with primary Forms: WORK NOTE
[2018-04-22 10:57] VITALS: BP 120/70; PULSE 76; O2SAT 99
== END 2018-04-22 11:41 | disposition home or self-care (01) ==
LOC: ED 08:11
DX: F41.9 Anxiety disorder, unspecified (principal); R11.2 Nausea with vomiting, unspecified

== ENCOUNTER 2018-10-14 19:15 | Emergency (ER) | payer MEDICAID, OTHER ==
[2018-10-14 19:40] VITALS: BMI 29.3
[2018-10-14 19:52] VITALS: TEMP 98
--- NOTE | 2018-10-14 20:00 | ED PDOC ---
Arrival/HPI - General Chief Complaint: Upper Extremity Problem/Injury Time Seen by Provider: 10/14/18 19:17 - History of Present Illness Narrative History of Present Illness (Text): 28 yr old male w/ hx of anxiety, cervical disk herniation p/w R shoulder pain and numbness to the fingertips. Pt notes numbness to digits excluding thumb to dorsal and palmar sides for months. He notes that the numbness has not progressed but has not improved either. He notes worsening pain when he did not take his tramadol, NSAID and flexiril for his pain today and decided to come in to be evaluated. He otherwise denies any decrease in strength, fall or trauma or neck pain. No neck stiffness headache or fever. No abnormal coloration to digits or rash. Pt notes that he was recently seen at [facility] for the same pain and is only requesting pain medications to improve his current pain. He denies any other complaints. Past Medical History - Infectious Disease Hx of Infectious Diseases: None - Tetanus Immunization Tetanus Immunization: Unknown - Cardiac Hx Cardiac Disorders: No - Pulmonary Hx Asthma: Yes - Neurological Hx Neurological Disorder: No Other/Comment: "nerve damage to neck". cervical disc - HEENT Hx HEENT Disorder: No - Renal Hx Renal Disorder: No - Endocrine/Metabolic Hx Endocrine Disorders: No - Hematological/Oncological Hx Blood Disorders: No - Integumentary Hx Dermatological Disorder: No - Musculoskeletal/Rheumatological Hx Musculoskeletal Disorders: No - Gastrointestinal Hx Gastrointestinal Disorders: No - Genitourinary/Gynecological Hx Genitourinary Disorders: No - Psychiatric Hx Anxiety: Yes Hx Bipolar Disorder: Yes Hx Depression: Yes Hx Substance Use: Yes - Surgical History Hx Tonsillectomy: Yes - Anesthesia Hx Anesthesia: Yes Hx Anesthesia Reactions: No Hx Malignant Hyperthermia: No - Suicidal Assessment Feels Threatened In Home Enviroment: No Family/Social History Family/Social History: Unknown Family HX Smoking Status: Light Smoker < 10 Cigarettes Daily Hx Alcohol Use: No Hx Substance Use: Yes Substance used: marijuana/pcp Allergies/Home Meds Allergies/Adverse Reactions: Allergies No Known Allergies Allergy (Verified 04/10/18 21:49) Review of Systems - Review of Systems Constitutional: absent: Fatigue, Weight Change, Fevers, Night Sweats Eyes: absent: Vision Changes, Photophobia, Eye Pain ENT: absent: Hearing Changes, Tinnitus Respiratory: absent: SOB, Cough, Sputum Cardiovascular: absent: Chest Pain, Palpitations Gastrointestinal: absent: Abdominal Pain, Stool Changes, Constipation Genitourinary Male: absent: Dysuria, Frequency, Hematuria Musculoskeletal: absent: Arthralgias, Back Pain Skin: absent: Rash, Pruritis Neurological: absent: Headache, Dizziness Endocrine: absent: Diaphoresis, Polyuria Hemo/Lymphatic: absent: Adenopathy, Easy Bleeding, Easy Bruising Psychiatric: absent: Anxiety, Depression, Suicidal Ideation Physical Exam Vital Signs Temp Pulse Resp BP Pulse Ox 10/14/18 19:40 98.0 F 87 18 129/65 95 Temperature: Afebrile Blood Pressure: Normal Pulse: Regular Respiratory Rate: Normal Appearance: Positive for: Well-Appearing, Non-Toxic, Comfortable Pain Distress: None Mental Status: Positive for: Alert and Oriented X 3 - Systems Exam Head: Present: Atraumatic, Normocephalic Pupils: Present: PERRL Extroacular Muscles: Present: EOMI Conjunctiva: Present: Normal Mouth: Present: Moist Mucous Membranes Pharnyx: Present: Normal. No: ERYTHEMA, EXUDATE Nose (External): Present: Atraumatic. No: Abrasion Neck: Present: Normal Range of Motion. No: Meningeal Signs, MIDLINE TENDERNESS Respiratory/Chest: Present: Clear to Auscultation, Good Air Exchange. No: Respiratory Distress, Accessory Muscle Use Cardiovascular: Present: Regular Rate and Rhythm, Normal S1, S2. No: Murmurs Abdomen: Present: Normal Bowel Sounds. No: Tenderness, Distention, Peritoneal Signs Back: Present: Normal Inspection. No: CVA Tenderness, Midline Tenderness Upper Extremity: Present: Normal Inspection, Normal ROM, NORMAL PULSES, Neurovascularly Intact, Capillary Refill < 2s, Other (equal strength b/l). No: Cyanosis, Edema, Tenderness, Swelling, Erythema, Temperature Abnormalties, Deformity Lower Extremity: Present: Normal Inspection, NORMAL PULSES, Neurovascularly Intact. No: Edema Neurological: Present: GCS=15, CN II-XII Intact, Speech Normal, Motor Func Grossly Intact Skin: Present: Warm, Dry, Normal Color. No: Rashes Psychiatric: Present: Alert, Oriented x 3, Normal Insight, Normal Concentration Medical Decision Making ED Course and Treatment: 28 yr old male w/ hx cervical disk issue, chronic shoulder pain, p/w chronic R shoulder pain after not taking his pain meds today. Finger numbness non-in line with appreciable nerve layout with hand, and on exam pt has normal strength and n/v intact in b/l UE. Per pts records, pt has had previous MRIs for this pain as well as multiple visits to [facility] for same issue and he denies any worsening. Unlikely worsening radiculopathy. Negative tinel and flex sign, no wrist pain. No snuffbox pain or indication of trauma. pending pain meds, re-eval 10/14/18 20:29 [place] AUDIT TECH checked: Pt filled tramadol 50mg 15 tabs 10/08 for 5 day script 10/14/18 21:12 Pt notes shoulder pain and tingling/numbnes in fingertips fully resolved he notes that he would like to go home at this time and does not need any pain med given return indications and f/u, pt clear for d/c home - Medication Orders Current Medication Orders: Cyclobenzaprine HCl (Flexeril) 10 mg PO STAT STA Stop: 10/14/18 19:56 Ketorolac Tromethamine (Toradol) 30 mg IM STAT STA Stop: 10/14/18 19:56 Disposition/Present on Arrival - Present on Arrival Any Indicators Present on Arrival: No History of DVT/PE: No History of Uncontrolled Diabetes: No Urinary Catheter: No History of Decub. Ulcer: No History Surgical Site Infection Following: None - Disposition Have Diagnosis and Disposition been Completed?: Yes Diagnosis: Chronic shoulder pain Disposition: HOME/ ROUTINE Disposition Time: 20:31 Patient Problems: Current Active Problems Problem Status Onset Chronic shoulder pain Acute Condition: STABLE Discharge Instructions (ExitCare): Shoulder Pain (DC) Additional Instructions: Follow up with your bone doctor and your primary care doctor as discussed, if you cannot follow up with them, follow up with the doctors we have recommended. AMBROCIO WONG JR, thank you for letting us take care of you today. Your provider was Norman Irby and you were treated for SHOULDER PAIN, NUMBNESS IN [facility]. The emergency medical care you received today was directed at your acute symptoms. If you were prescribed any medication, please fill it and take as directed. It may take several days for your symptoms to resolve. Return to the Emergency Department if your symptoms worsen, do not improve, or if you have any other problems. Please contact your doctor or call one of the physicians/clinics you have been referred to that are listed on the Patient Visit Information form that is included in your discharge packet. Bring any paperwork you were given at discharge with you along with any medications you are taking to your follow up visit. Our treatment cannot replace ongoing medical care by a primary care provider outside of the emergency department. Thank you for allowing the [facility] team to be part of your care today. If you had an X-Ray or CT scan: A Radiologist will review the ED reading if any change in treatment is needed we will contact you. If you had a blood, urine, or wound culture: It will take several days for the results, if any change in treatment is needed we will contact you. If you had an STI test: It will take 48 hours for the results. Please call after 1 week if you have not heard back. Referrals: Jurgen Sotomayor MD [Staff Provider] - Follow up with primary Yovana Muir MD [Medical Doctor] - Follow up with primary Bam Cantrell DO [Staff Provider] - Follow up with primary [facility] [place] [Outside] - Follow up with primary [facility] [Outside] - Follow up with primary [facility] [place] [facility] [Outside] - Follow up with primary Forms: [facility] (Yoruba)
[2018-10-14 21:14] VITALS: BP 98/73; PULSE 90; RESP 17; O2SAT 96
== END 2018-10-14 21:25 | disposition home or self-care (01) ==
LOC: ED 19:15
DX: M25.511 Pain in right shoulder (principal); G89.29 Other chronic pain
CPT/HCPCS: 96372; 99283; J1885

== ENCOUNTER 2018-10-17 22:31 | Emergency (ER) | payer MEDICAID, OTHER ==
[2018-10-17 22:37] VITALS: BMI 29.8
[2018-10-17 22:41] VITALS: TEMP 98.2
[2018-10-17] MEDS ORDERED: Albuterol-Ipratrop 3 mg / 0.5 (3 ml) UD ONE (22:59)
[2018-10-17] MEDS: Albuterol-Ipratrop 3 mg / 0.5 (3 ml) UD IH SCH ×3 (23:05→23:35)
[2018-10-17 23:23] LABS: BASO # 0.04 K/mm3 (0.0-2.0); BASO % 0.6 % (0.0-3.0); EOS # 0.6 (0.0-0.7); EOS % 8.6 % (1.5-5.0); HEMOGLOBIN 14.4 g/dL (14.0-18.0); LYMPH # 2.4 (1.2-3.4); LYMPH % 36.1 % (22.0-35.0); MEAN CELL VOLUME 88.9 fl (80.0-105.0); MEAN CORPUSCULAR HEMOGLOBIN 29.7 pg (25.0-35.0); MEAN CORPUSCULAR HGB CONC 33.4 g/dl (31.0-37.0); MEAN PLATELET VOLUME 11.3 fl (7.0-11.0); MONO # 0.4 (0.1-0.6); MONO % 6.5 % (1.0-6.0); RBC 4.85 10^6/uL (3.5-6.1); RED CELL DISTRIBUTION WIDTH 13.2 % (11.5-14.5); WHITE BLOOD COUNT 6.6 10^3/uL (4.5-11.0)
[2018-10-17 23:24] LABS: ALB/GLOB RATIO 1.2 (1.1-1.8); ALBUMIN 3.6 g/dL (3.0-4.8); ALT/SGPT 61 U/L (7-56); AST/SGOT 55 U/L (17-59); BLOOD UREA NITROGEN 25 mg/dL (7-21); CALCIUM 8.7 mg/dL (8.4-10.5); GFR NON-AFRICAN AMERICAN > 60
[2018-10-17 23:26] LABS: INR 0.89; PARTIAL THROMBOPLASTIN TIME 35.5 Seconds (26.9-38.3)
[2018-10-17] MEDS ORDERED: Sodium Chloride 0.9% 1,000 ML IV STA (23:26)
--- NOTE | 2018-10-17 23:30 | ED PDOC ---
Arrival/HPI <Otf Krueger - Last Filed: 10/18/18 00:39> - General Historian: Patient - History of Present Illness Narrative History of Present Illness (Text): 28 y/o male with PMH of substance abuse, asthma, bakers cyst presents to the ED for evaluation of asthma exacerbation. Pt was drinking alcohol today and got into an argument with his girlfriend, causing him anxiety and exacerbating his asthma. Denies fever, chills, chest pain, palpitations, numbness, weakness, paresthesias, abdominal pain, nausea, vomiting, or any other associated symptoms. <Clarissa Hernandez - Last Filed: 10/18/18 03:42> - General Chief Complaint: Shortness Of Breath Time Seen by Provider: 10/17/18 22:33 Past Medical History - Provider Review Nursing Documentation Reviewed: Yes - Infectious Disease Hx of Infectious Diseases: None - Tetanus Immunization Tetanus Immunization: Unknown - Cardiac Hx Cardiac Disorders: No - Pulmonary Hx Asthma: Yes - Neurological Other/Comment: Carpal tunnel - HEENT Hx HEENT Disorder: No - Renal Hx Renal Disorder: No - Endocrine/Metabolic Hx Endocrine Disorders: No - Hematological/Oncological Hx Blood Disorders: No - Integumentary Hx Dermatological Disorder: No - Musculoskeletal/Rheumatological Hx Musculoskeletal Disorders: No - Gastrointestinal Hx Gastrointestinal Disorders: No - Genitourinary/Gynecological Hx Genitourinary Disorders: No - Psychiatric Hx Anxiety: Yes Hx Bipolar Disorder: Yes Hx Depression: Yes Hx Substance Use: Yes - Surgical History Hx Tonsillectomy: Yes - Anesthesia Hx Anesthesia: Yes Hx Anesthesia Reactions: No Hx Malignant Hyperthermia: No - Suicidal Assessment Feels Threatened In Home Enviroment: No <Clarissa Hernandez - Last Filed: 10/18/18 03:42> Family/Social History - Physician Review Nursing Documentation Reviewed: Yes Family/Social History: No Known Family HX Smoking Status: Light Smoker < 10 Cigarettes Daily Hx Alcohol Use: No Hx Substance Use: Yes Substance used: marijuana/pcp <Clarissa Hernandez - Last Filed: 10/18/18 03:42> Allergies/Home Meds <Otf Krueger - Last Filed: 10/18/18 00:39> <Clarissa Hernandez - Last Filed: 10/18/18 03:42> Allergies/Adverse Reactions: Allergies No Known Allergies Allergy (Verified 04/10/18 21:49) Review of Systems - Review of Systems Constitutional: Normal. absent: Fevers Eyes: Normal. absent: Vision Changes ENT: Normal. absent: Sore Throat, Sinus Congestion Respiratory: SOB, Cough Cardiovascular: Normal. absent: Chest Pain, Palpitations Gastrointestinal: Normal. absent: Abdominal Pain, Nausea, Vomiting Genitourinary Male: Normal. absent: Dysuria, Frequency Musculoskeletal: Other (leg pain). absent: Back Pain, Neck Pain Skin: Normal. absent: Rash Neurological: Normal. absent: Headache, Dizziness <Clarissa Hernandez - Last Filed: 10/18/18 03:42> Physical Exam Vital Signs Temp Pulse Resp BP Pulse Ox 10/17/18 22:37 98.2 F 86 18 126/74 100 <Otf Krueger - Last Filed: 10/18/18 00:39> Vital Signs Reviewed: Yes Vital Signs Temp Pulse Resp BP Pulse Ox 10/17/18 22:37 98.2 F 86 18 126/74 100 Temperature: Afebrile Blood Pressure: Normal Pulse: Regular Respiratory Rate: Normal Appearance: Positive for: Well-Appearing, Non-Toxic, Comfortable Pain Distress: None Mental Status: Positive for: Alert and Oriented X 3 - Systems Exam Head: Present: Atraumatic, Normocephalic Pupils: Present: PERRL Extroacular Muscles: Present: EOMI Conjunctiva: Present: Normal Mouth: Present: Moist Mucous Membranes Neck: Present: Normal Range of Motion. No: Meningeal Signs Respiratory/Chest: Present: Good Air Exchange, Wheezes (bilateral expiratory wheezing, diffuse). No: Respiratory Distress, Accessory Muscle Use Cardiovascular: Present: Regular Rate and Rhythm, Normal S1, S2, Peripheal Pulses Present Upper Extremity: Present: Normal Inspection, Normal ROM, NORMAL PULSES, Neurovascularly Intact, Capillary Refill < 2s. No: Cyanosis, Edema, Temperature Abnormalties Lower Extremity: Present: Normal Inspection, NORMAL PULSES, Normal ROM, Tenderness (mild to posterior left knee), Swelling (mild to posterior left kn ee), Neurovascularly Intact, Capillary Refill < 2 s. No: Temperature Abnormalties Neurological: Present: GCS=15, CN II-XII Intact, Speech Normal, Motor Func Grossly Intact, Normal Sensory Function, Gait Normal Skin: Present: Warm, Dry, Normal Color. No: Rashes Psychiatric: Present: Alert, Oriented x 3, Normal Insight, Normal Concentration, Normal Affect, Normal Mood <Clarissa Hernandez - Last Filed: 10/18/18 03:42> Medical Decision Making - Lab Interpretations Lab Results: PT 9.9 SECONDS (9.4-12.5) 10/17/18 23:10 INR 0.89 10/17/18 23:10 APTT 35.5 Seconds (26.9-38.3) 10/17/18 23:10 Troponin I < 0.01 ng/mL 10/17/18 23:10 Total Bilirubin 0.3 mg/dL (0.2-1.3) 10/17/18 23:10 AST 55 U/L (17-59) 10/17/18 23:10 ALT 61 U/L (7-56) H 10/17/18 23:10 Alkaline Phosphatase 86 U/L (38-126) 10/17/18 23:10 Total Protein 6.7 g/dL (5.8-8.3) 10/17/18 23:10 Albumin 3.6 g/dL (3.0-4.8) 10/17/18 23:10 Globulin 3.1 gm/dL 10/17/18 23:10 Albumin/Globulin Ratio 1.2 (1.1-1.8) 10/17/18 23:10 - RAD Interpretation Radiology Orders: 10/17/18 22:50 DUPLEX LOWER EXTRM VEIN LEFT [US] Stat 10/17/18 22:51 CHEST PORTABLE [RAD] Stat - Medication Orders Current Medication Orders: Discontinued Medications Albuterol/Ipratropium (Duoneb 3 Mg/0.5 Mg (3 Ml) Ud) 3 ml IH Q15M DAVY Stop: 10/17/18 23:31 Last Admin: 10/17/18 23:35 Dose: 3 ml Sodium Chloride (Sodium Chloride 0.9%) 1,000 mls @ 999 mls/hr IV .Q1H1M STA Stop: 10/18/18 00:26 Last Admin: 10/18/18 00:21 Dose: 999 mls/hr eMAR Start Stop Document 10/18/18 00:21 JOL (Rec: 10/18/18 00:21 JOL [id number]) Intravenous Solution Start Date 10/18/18 Start Time 00:21 End Date 10/18/18 End time 01:21 Total Infusion Time 60 Methylprednisolone (Solu-Medrol) 125 mg IVP STAT STA Stop: 10/17/18 22:51 Last Admin: 10/17/18 23:05 Dose: 125 mg IVP Administration Document 10/17/18 23:05 JULIO CESAR (Rec: 10/18/18 00:15 JO [id number]) Charges for Administration # of IVP Administrations 1 <tOf Krueger - Last Filed: 10/18/18 00:39> ED Course and Treatment: Initial Plan: * CBC, CMP * Coags * Mg, Phos * Troponin * Alcohol Level * EKG * CXR * IVF * Solumedrol * Duoneb x 3 Bloodwork reviewed, unremarkable Alcohol level 111 - Lab Interpretations Lab Results: INR 0.89 10/17/18 23:10 APTT 35.5 Seconds (26.9-38.3) 10/17/18 23:10 Total Bilirubin 0.3 mg/dL (0.2-1.3) 10/17/18 23:10 AST 55 U/L (17-59) 10/17/18 23:10 ALT 61 U/L (7-56) H 10/17/18 23:10 Alkaline Phosphatase 86 U/L (38-126) 10/17/18 23:10 Total Protein 6.7 g/dL (5.8-8.3) 10/17/18 23:10 Albumin 3.6 g/dL (3.0-4.8) 10/17/18 23:10 Globulin 3.1 gm/dL 10/17/18 23:10 Albumin/Globulin Ratio 1.2 (1.1-1.8) 10/17/18 23:10 10/17/18 23:10 10/17/18 23:10 Lab Results 10/17/18 23:10: Alcohol, Quantitative 111 H 10/17/18 23:10: PT 9.9, INR 0.89, APTT 35.5 10/17/18 23:10: Sodium 139, Potassium 4.0, Chloride 104, Carbon Dioxide 26, Anion Gap 13, BUN 25 H, Creatinine 1.0, Est GFR ( Amer) > 60, Est GFR (Non-Af Amer) > 60, Random Glucose 91, Calcium 8.7, Magnesium 2.0, Total Bilirubin 0.3, AST 55, ALT 61 H, Alkaline Phosphatase 86, Lactate Dehydrogenase 658, Total Creatine Kinase 325 H, CK-MB (CK-2) 3.8 H, CK-MB (CK-2) % Cancelled, Troponin I < 0.01, Total Protein 6.7, Albumin 3.6, Globulin 3.1, Albumin/Globulin Ratio 1.2 10/17/18 23:10: WBC 6.6, RBC 4.85, Hgb 14.4, Hct 43.1, MCV 88.9, MCH 29.7, MCHC 33.4, RDW 13.2, Plt Count 175, MPV 11.3 H, Neut % (Auto) 48.2 L, Lymph % (Auto) 36.1 H, Rosebud % (Auto) 6.5 H, Eos % (Auto) 8.6 H, Baso % (Auto) 0.6, Lymph # (Auto) 2.4, Rosebud # (Auto) 0.4, Eos # (Auto) 0.6, Baso # (Auto) 0.04, Absolute Neuts (auto) 3.20 I have reviewed the lab results: Yes - RAD Interpretation Radiology Orders: 10/17/18 22:50 DUPLEX LOWER EXTRM VEIN LEFT [US] Stat 10/17/18 22:51 CHEST PORTABLE [RAD] Stat - Medication Orders Current Medication Orders: Albuterol/Ipratropium (Duoneb 3 Mg/0.5 Mg (3 Ml) Ud) 3 ml IH Q15M DAVY Stop: 10/17/18 23:31 Discontinued Medications Methylprednisolone (Solu-Medrol) 125 mg IVP STAT STA Stop: 10/17/18 22:51 <Clarissa Hernandez - Last Filed: 10/18/18 03:42> - PA / HIGH SPEED PRINTER OPERATOR / Resident Statement YOLI has reviewed & agrees with the documentation as recorded. YOLI has examined the patient and agrees with the treatment plan. <Otf Krueger - Last Filed: 10/18/18 00:39> Disposition/Present on Arrival <Otf Krueger - Last Filed: 10/18/18 00:39> - Present on Arrival Any Indicators Present on Arrival: No History of DVT/PE: No History of Uncontrolled Diabetes: No Urinary Catheter: No History of Decub. Ulcer: No History Surgical Site Infection Following: None - Disposition Have Diagnosis and Disposition been Completed?: Yes Disposition Time: 01:57 Patient Plan: Discharge <MicahClarissa stern - Last Filed: 10/18/18 03:42> - Disposition Diagnosis: Alcohol intoxication, Asthma exacerbation, Anxiety Disposition: HOME/ ROUTINE Condition: IMPROVED Discharge Instructions (ExitCare): Alcohol Use - When Is Drinking a Problem?, Asthma, Adult (DC), Anxiety, Adult (DC) Additional Instructions: Prednisone 2 tabs daily for 4 more days Zpak as directed Ibuprofen every 8 hours as needed for pain Increase fluids Discontinue alcohol and drug use Followup with primary within 2 days Return to ER with any new/worsening symptoms Prescriptions: Azithromycin [Z-Miller] 250 mg PO DAILY #6 tab Ibuprofen [Motrin Tab] 600 mg PO Q8 #30 tab predniSONE [predniSONE Tab] 40 mg PO DAILY #8 tab Referrals: Max Davila MD [Staff Provider] - Follow up with primary Yovana Muir MD [Medical Doctor] - Follow up with primary [facility] [place] [facility] [place] - Follow up with primary Forms: [facility] (Arabic), WORK NOTE
[2018-10-17 23:35] LABS: TROPONIN I < 0.01 ng/mL
[2018-10-17 23:52] LABS: PROTHROMBIN TIME 9.9 SECONDS (9.4-12.5)
[2018-10-18 00:13] LABS: CK-MB 3.8 ng/mL (0.0-3.6)
[2018-10-18 03:31] VITALS: BP 123/76; PULSE 70; RESP 16; O2SAT 100
--- NOTE | 2018-10-18 09:01 | RAD ---
Date of service: 10/17/2018 HISTORY: asthma COMPARISON: 04/10/2018 TECHNIQUE: 1 view obtained. FINDINGS: LUNGS: No active pulmonary disease. PLEURA: No significant pleural effusion identified, no pneumothorax apparent. CARDIOVASCULAR: No aortic atherosclerotic calcification present. Normal cardiac size. No pulmonary vascular congestion. OSSEOUS STRUCTURES: No significant abnormalities. VISUALIZED UPPER ABDOMEN: Normal. OTHER FINDINGS: None. IMPRESSION: No active disease.
--- NOTE | 2018-10-18 09:07 | CARD ---
APPROVED REPORT Date of service: 10/17/2018 EKG Measurement Heart [id number] <Conclusion> Normal sinus rhythm Normal ECG
--- NOTE | 2018-10-18 11:00 | US ---
PROCEDURE: Left lower extremity venous US HISTORY: Leg pain and swelling. Evaluate for DVT. PHYSICIAN(S): Brannon Hernandez MD. TECHNIQUE: Duplex sonography and color-flow Doppler with graded compression were used to evaluate the deep venous system of the left lower extremity. FINDINGS: The visualized deep venous system of the left lower extremity is sonographically normal and compressible. Normal wave forms and augmentation are seen. There is no sonographic evidence for deep venous thrombosis in the visualized segments of the left lower extremity. There is a 3.5 x 5.7 cm complex fluid collection left popliteal fossa, consistent with a Motley cyst. IMPRESSION: 1. No sonographic evidence for deep venous thrombosis in the visualized segments of the left lower extremity.
== END 2018-10-18 03:20 | disposition home or self-care (01) ==
LOC: ED 22:31
DX: J45.901 Unspecified asthma with (acute) exacerbation (principal); F10.129 Alcohol abuse with intoxication, unspecified; F41.9 Anxiety disorder, unspecified; F17.210 Nicotine dependence, cigarettes, uncomplicated
CPT/HCPCS: 71045; 80053; 80320; 82550; 82553; 83615; 83735; 84484; 85025; 85610; 85730; 93005; 93971; 96361; 96374; 99285; J2930; J7030

== ENCOUNTER 2018-11-08 18:09 | Emergency (ER) | payer MEDICAID ==
[2018-11-08 18:09] VITALS: BMI 29.8
--- NOTE | 2018-11-08 18:11 | ED PDOC ---
Arrival/HPI - General Time Seen by Provider: 11/08/18 18:10 Historian: Patient - History of Present Illness Narrative History of Present Illness (Text): 11/08/18 18:11 28 year old male, pmh including asthma, nkda, complaining of epigastric pain with nausea/vomiting w/o diarrhea x 2 hours. Pt. stated that he was eating fast food, quickly after developed epigastric pain, started to have nausea/vomiting, no fever or chills, no lower abdominal pain, no night sweat, no dizziness, no change in vision, no other medical or psychological complaints. Past Medical History - Provider Review Nursing Documentation Reviewed: Yes - Infectious Disease Hx of Infectious Diseases: None - Tetanus Immunization Tetanus Immunization: Unknown - Cardiac Hx Cardiac Disorders: No - Pulmonary Hx Asthma: Yes - Neurological Other/Comment: Carpal tunnel - HEENT Hx HEENT Disorder: No - Renal Hx Renal Disorder: No - Endocrine/Metabolic Hx Endocrine Disorders: No - Hematological/Oncological Hx Blood Disorders: No - Integumentary Hx Dermatological Disorder: No - Musculoskeletal/Rheumatological Hx Musculoskeletal Disorders: No - Gastrointestinal Hx Gastrointestinal Disorders: No - Genitourinary/Gynecological Hx Genitourinary Disorders: No - Psychiatric Hx Anxiety: Yes Hx Bipolar Disorder: Yes Hx Depression: Yes Hx Substance Use: Yes - Surgical History Hx Tonsillectomy: Yes - Anesthesia Hx Anesthesia: Yes Hx Anesthesia Reactions: No Hx Malignant Hyperthermia: No - Suicidal Assessment Feels Threatened In Home Enviroment: No Family/Social History - Physician Review Nursing Documentation Reviewed: Yes Family/Social History: Unknown Family HX Smoking Status: Light Smoker < 10 Cigarettes Daily Hx Alcohol Use: No Hx Substance Use: Yes Substance used: marijuana/pcp Allergies/Home Meds Allergies/Adverse Reactions: Allergies No Known Allergies Allergy (Verified 11/08/18 18:19) Review of Systems - Review of Systems Constitutional: absent: Fatigue, Fevers Eyes: absent: Vision Changes ENT: absent: Hearing Changes Respiratory: absent: SOB, Cough Cardiovascular: absent: Chest Pain Gastrointestinal: Abdominal Pain, Nausea, Vomiting. absent: Diarrhea Musculoskeletal: absent: Arthralgias, Back Pain Skin: absent: Rash, Pruritis Neurological: absent: Headache, Dizziness Psychiatric: absent: Anxiety, Depression, Suicidal Ideation Physical Exam Vital Signs Reviewed: Yes Temperature: Afebrile Pulse: Regular Respiratory Rate: Normal Appearance: Positive for: Well-Appearing, Non-Toxic, Comfortable Pain Distress: Mild Mental Status: Positive for: Alert and Oriented X 3 - Systems Exam Head: Present: Atraumatic, Normocephalic Pupils: Present: PERRL Extroacular Muscles: Present: EOMI Conjunctiva: Present: Normal Mouth: Present: Moist Mucous Membranes Neck: Present: Normal Range of Motion Respiratory/Chest: Present: Clear to Auscultation, Good Air Exchange. No: Respiratory Distress, Accessory Muscle Use Cardiovascular: Present: Regular Rate and Rhythm, Normal S1, S2. No: Murmurs Abdomen: Present: Tenderness (+epigastric tenderness), Normal Bowel Sounds. No: Distention, Peritoneal Signs, Rebound, Guarding, Rovsing's Sign Present Back: Present: Normal Inspection Upper Extremity: Present: Normal Inspection. No: Cyanosis, Edema Lower Extremity: Present: Normal Inspection. No: Edema Neurological: Present: GCS=15, CN II-XII Intact, Speech Normal Skin: Present: Warm, Dry, Normal Color. No: Rashes Psychiatric: Present: Alert, Oriented x 3, Normal Insight, Normal Concentration Medical Decision Making ED Course and Treatment: 11/08/18 18:36 -labs -abdominal sonogram -IVF/pepcid/zofran -Observe and reassess 11/08/18 20:34 -Abdominal sonogram Unremarkable ultrasound examination of the right upper quadrant. -Labs are non significant -Lipase is non significant -Alcohol within normal limit -Urinalysis show mild ketone, no signs of DKA, IVF ordered -UDS show +cocaine/benzo/opiate -All labs/radiology results discussed with him, he feels much better. Pains and symptoms resolved. -Pt. has no signs of withdrawal, no nausea/vomiting/diarrhea. -Discharge home with pepcid, zofran, stay hydrated, bed rest, follow up with your own pmd and GI within 2 days, avoid drug abuse, return to the ER for any new or worsening signs or symptoms. - RAD Interpretation Radiology Orders: Clinical history: Right upper quadrant pain. Findings: The pancreas appears grossly unremarkable. The liver demonstrates uniform echotexture and echogenicity, with no mass lesions. The gallbladder is unremarkable. The common bile duct measures 2 mm and is within normal limits. The right kidney measures 10.2 cm in length, and the left kidney measures 10.1 cm in length. There is no evidence of hydronephrosis or nephrolithiasis. The spleen is unremarkable. The aorta and inferior vena cava are within normal limit s. There is normal portal venous blood flow. There is no ascites. Impression: Unremarkable ultrasound examination of the right upper quadrant. Electronically signed on November 08, 2018 8:19:23 PM EDT by: Jhonathan Iyer M.D., M.B.A., Certified By [employer] Trained MRI and CT Specialist Director Of Materials Management: Radiologist - PA / BUSINESS DEVELOPMENT INTERN / Resident Statement MD/DO has reviewed & agrees with the documentation as recorded. Disposition/Present on Arrival - Present on Arrival Any Indicators Present on Arrival: No History of DVT/PE: No History of Uncontrolled Diabetes: No Urinary Catheter: No History of Decub. Ulcer: No History Surgical Site Infection Following: None - Disposition Have Diagnosis and Disposition been Completed?: Yes Diagnosis: Gastroenteritis Disposition: HOME/ ROUTINE Disposition Time: 19:00 Patient Plan: Discharge Condition: IMPROVED Additional Instructions: -Discharge home with pepcid, zofran, stay hydrated, bed rest, follow up with your own pmd and GI within 2 days, avoid drug abuse, return to the ER for any new or worsening signs or symptoms. Prescriptions: Famotidine [Pepcid] 20 mg PO BID #20 tab Ondansetron [Zofran] 4 mg PO Q8H PRN #10 tab PRN Reason: Nausea/Vomiting Referrals: Vini Valenzuela MD [Medical Doctor] - Follow up with primary [facility] [Outside] - [place] up with [place] [facility] [place] [facility] [place] - Follow up with primary Forms: WORK NOTE
[2018-11-08 18:19] VITALS: RESP 18; TEMP 98.3
[2018-11-08] MEDS ORDERED: Sodium Chloride 0.9% 1,000 ML IV STA (18:31)
[2018-11-08 19:01] LABS: BASO # 0.03 K/mm3 (0.0-2.0); BASO % 0.4 % (0.0-3.0); EOS # 0.4 (0.0-0.7); EOS % 5.6 % (1.5-5.0); HEMOGLOBIN 15.2 g/dL (14.0-18.0); LYMPH # 1.7 (1.2-3.4); LYMPH % 22.2 % (22.0-35.0); MEAN CELL VOLUME 86.4 fl (80.0-105.0); MEAN CORPUSCULAR HEMOGLOBIN 29.9 pg (25.0-35.0); MEAN CORPUSCULAR HGB CONC 34.5 g/dl (31.0-37.0); MEAN PLATELET VOLUME 10.5 fl (7.0-11.0); MONO # 0.9 (0.1-0.6); MONO % 12.2 % (1.0-6.0); RBC 5.09 10^6/uL (3.5-6.1); RED CELL DISTRIBUTION WIDTH 12.9 % (11.5-14.5); WHITE BLOOD COUNT 7.4 10^3/uL (4.5-11.0)
[2018-11-08 19:14] LABS: URINE BILIRUBIN NEGATIVE (NEGATIVE); URINE BLOOD NEGATIVE (NEGATIVE); URINE GLUCOSE (UA) NEGATIVE (NEGATIVE); URINE LEUKOCYTE ESTERASE NEGATIVE Leu/uL (NEGATIVE); URINE PROTEIN NEGATIVE mg/dL (<30 mg/dL)
[2018-11-08 19:15] LABS: URINE APPEARANCE CLEAR (CLEAR); URINE COLOR YELLOW (YELLOW)
[2018-11-08 19:28] LABS: ALB/GLOB RATIO 1.2 (1.1-1.8); ALBUMIN 3.8 g/dL (3.0-4.8); ALT/SGPT 37 U/L (7-56); AST/SGOT 35 U/L (17-59); BLOOD UREA NITROGEN 20 mg/dL (7-21); CALCIUM 8.8 mg/dL (8.4-10.5); GFR NON-AFRICAN AMERICAN > 60; LIPASE 72 U/L (23-300)
[2018-11-08 19:56] LABS: BARBITURATES, UR NEGATIVE (NEGATIVE); BENZODIAZEPINES, UR POSITIVE (NEGATIVE); OPIATES, UR POSITIVE (NEGATIVE); PHENCYCLIDINE, UR NEGATIVE (NEGATIVE)
[2018-11-08 20:44] VITALS: BP 107/62; PULSE 70; O2SAT 98
--- NOTE | 2018-11-09 08:24 | US ---
Date of service: 11/08/2018 HISTORY: epigastric pain, choleycystitis? COMPARISON: None. TECHNIQUE: Sonographic evaluation of the abdomen. FINDINGS: LIVER: Measures cm. Normal echogenicity of the liver parenchyma. No mass. No intrahepatic bile duct dilatation. GALLBLADDER: Unremarkable. No gallstones. COMMON BILE DUCT: Measures mm. No stones. No dilatation. PANCREAS: Unremarkable as visualized. No mass. No ductal dilatation. RIGHT KIDNEY: Measures cm. Normal echogenicity. No calculus, mass, or hydronephrosis. LEFT KIDNEY: Measures cm. Normal echogenicity. No calculus, mass, or hydronephrosis. SPLEEN: Normal in size and contour. No mass. AORTA: No aneurysmal dilatation. IVC: Unremarkable. OTHER FINDINGS: None. IMPRESSION: Unremarkable abdominal sonogram.
== END 2018-11-08 20:44 | disposition home or self-care (01) ==
LOC: ED 18:09
DX: K52.9 Noninfective gastroenteritis and colitis, unspecified (principal); F17.210 Nicotine dependence, cigarettes, uncomplicated
CPT/HCPCS: 76700; 80053; 80320; 80324; 80345; 80346; 80349; 80353; 80358; 80361; 81003; 83690; 83735; 83992; 85025; 96361; 96374; 96375; 99284; J2405; J7030

== ENCOUNTER 2018-11-17 19:56 | Emergency (ER) | payer MEDICAID ==
[2018-11-17 19:56] VITALS: BMI 29.8
[2018-11-17 20:05] VITALS: TEMP 97.7
[2018-11-17] MEDS ORDERED: Albuterol-Ipratrop 3 mg / 0.5 (3 ml) UD IH STA (20:14)
--- NOTE | 2018-11-17 22:07 | ED PDOC ---
Arrival/HPI - General Chief Complaint: GI Problem Historian: Patient - History of Present Illness Narrative History of Present Illness (Text): 11/17/18 22:04 28yo male with pmhx of Asthma and anxiety who present with complaint of chest tightness typical for his Asthma exacerbation and he also report 3 episodes of vomiting today after eating out. He states he has been using his neb at home without relieve for weeks now. Denies cough, abdominal pain, diarrhea, fever, chills, chest pain, SOB, sick contact, any other complaint. Past Medical History - Provider Review Nursing Documentation Reviewed: Yes - Infectious Disease Hx of Infectious Diseases: None - Tetanus Immunization Tetanus Immunization: Unknown - Cardiac Hx Cardiac Disorders: No - Pulmonary Hx Respiratory Disorders: Yes Hx Asthma: Yes - Neurological Other/Comment: Carpal tunnel - HEENT Hx HEENT Disorder: No - Renal Hx Renal Disorder: No - Endocrine/Metabolic Hx Endocrine Disorders: No - Hematological/Oncological Hx Blood Disorders: No - Integumentary Hx Dermatological Disorder: No - Musculoskeletal/Rheumatological Hx Musculoskeletal Disorders: No - Gastrointestinal Hx Gastrointestinal Disorders: No - Genitourinary/Gynecological Hx Genitourinary Disorders: No - Psychiatric Hx Psychophysiologic Disorder: Yes Hx Anxiety: Yes Hx Bipolar Disorder: Yes Hx Depression: Yes Hx Substance Use: Yes - Surgical History Hx Tonsillectomy: Yes - Anesthesia Hx Anesthesia: Yes Hx Anesthesia Reactions: No Hx Malignant Hyperthermia: No - Suicidal Assessment Feels Threatened In Home Enviroment: No Family/Social History - Physician Review Nursing Documentation Reviewed: Yes Family/Social History: Unknown Family HX Smoking Status: Light Smoker < 10 Cigarettes Daily Hx Alcohol Use: No Hx Substance Use: Yes Substance used: marijuana/pcp Allergies/Home Meds Allergies/Adverse Reactions: Allergies No Known Allergies Allergy (Verified 11/17/18 20:06) Review of Systems - Physician Review All systems were reviewed & negative as marked: Yes - Review of Systems Constitutional: Normal Eyes: Normal ENT: Normal Respiratory: Other (Chest tightness) Cardiovascular: Normal Gastrointestinal: Nausea, Vomiting. absent: Abdominal Pain, Constipation, Diarrhea, Hematochezia, Hematemesis Genitourinary Male: Normal Musculoskeletal: Normal Skin: Normal Neurological: Normal Endocrine: Normal Hemo/Lymphatic: Normal Psychiatric: Normal Physical Exam Vital Signs Reviewed: Yes Vital Signs Temp Pulse Resp BP Pulse Ox 11/17/18 20:04 97.7 F 63 19 121/58 L 97 Temperature: Afebrile Blood Pressure: Normal Pulse: Regular Respiratory Rate: Normal Appearance: Positive for: Well-Appearing, Non-Toxic, Comfortable Pain Distress: None Mental Status: Positive for: Alert and Oriented X 3 - Systems Exam Head: Present: Atraumatic, Normocephalic Pupils: Present: PERRL Extroacular Muscles: Present: EOMI Conjunctiva: Present: Normal Mouth: Present: Moist Mucous Membranes Neck: Present: Normal Range of Motion Respiratory/Chest: Present: Clear to Auscultation, Good Air Exchange, Wheezes (Very minimal wheeze at the bases). No: Respiratory Distress, Accessory Muscle Use, Decreased Breath Sounds, Rales, Retracting, Rhonchi, Tachypneic Cardiovascular: Present: Regular Rate and Rhythm, Normal S1, S2. No: Murmurs Abdomen: Present: Normal Bowel Sounds, Other (soft). No: Tenderness, Distention, Peritoneal Signs, Rebound, Guarding, McBurney's Point Tender, Rovsing's Sign Present Back: Present: Normal Inspection Upper Extremity: Present: Normal Inspection. No: Cyanosis, Edema Lower Extremity: Present: Normal Inspection. No: Edema Neurological: Present: GCS=15, CN II-XII Intact, Speech Normal Skin: Present: Warm, Dry, Normal Color. No: Rashes Psychiatric: Present: Alert, Oriented x 3, Normal Insight, Normal Concentration Medical Decision Making ED Course and Treatment: 11/17/18 22:42 PT presented to ED for sated history. He was not in any distress. He had very mild expiratory wheeze on exam and not hypoxic. His abdominal exam was benign. He was noted to tolerate PO challenge in ED On re evaluation s/p neb tx and prednisone his lung was CTA b/l He was DC home with neb tx, predinsone and zofran. Advised to follow BLAND diet and drink plenty of fluid. Referred to his PMD/clnic - Medication Orders Current Medication Orders: Discontinued Medications Albuterol/Ipratropium (Duoneb 3 Mg/0.5 Mg (3 Ml) Ud) 3 ml IH Q15M STA Stop: 11/17/18 20:15 Last Admin: 11/17/18 20:14 Dose: 3 ml Ondansetron HCl (Zofran Odt) 4 mg PO STAT STA Stop: 11/17/18 20:15 Last Admin: 11/17/18 20:47 Dose: 4 mg Prednisone (Prednisone Tab) 40 mg PO STAT STA Stop: 11/17/18 20:16 Last Admin: 11/17/18 20:47 Dose: 40 mg Disposition/Present on Arrival - Present on Arrival Any Indicators Present on Arrival: No History of DVT/PE: No History of Uncontrolled Diabetes: No Urinary Catheter: No History of Decub. Ulcer: No History Surgical Site Infection Following: None - Disposition Have Diagnosis and Disposition been Completed?: Yes Diagnosis: Vomiting, Asthma Disposition: HOME/ ROUTINE Disposition Time: 22:10 Patient Plan: Discharge Patient Problems: Current Active Problems Problem Status Onset Asthma Acute Vomiting Acute Condition: STABLE Discharge Instructions (ExitCare): Asthma in Adults, Nausea and Vomiting, Adult (DC) Additional Instructions: Follow BLAND diet and drink plenty of fluid Follow up with your doctor Return to ED for any new or worsening symptoms Prescriptions: Albuterol HFA [Ventolin HFA 90 mcg/actuation (8 g)] 2 puff IH [id number] #1 puff Albuterol 0.083% [Albuterol Sulfate 3 Ml] 60 ml IH Q6 #1 neb Ondansetron ODT [Zofran ODT] 4 mg PO Q6 #6 odt Referrals: PCP,NO [Primary Care Provider] - Follow up with primary [facility] [Outside] - [place] up [place] [facility] [place] - Follow up with primary Forms: [employer] (Ukrainian)
[2018-11-17 22:28] VITALS: BP 124/64; PULSE 67; RESP 17; O2SAT 100
== END 2018-11-17 22:27 | disposition home or self-care (01) ==
LOC: ED 19:56
DX: R11.10 Vomiting, unspecified (principal); J45.909 Unspecified asthma, uncomplicated; F17.210 Nicotine dependence, cigarettes, uncomplicated